=== PATIENT | female | born 1935 | race Caucasian/White ===

== ENCOUNTER → 2019-01-17 13:32 | Outpatient (CLI) | payer MEDICARE, OTHER, SELFPAY ==
--- NOTE | 2019-01-17 | DI.MRI.S_ITS ---
PROCEDURE: MR LUMBAR SPINE WO CON INDICATIONS: Low back pain TECHNIQUE: Noncontrast sagittal T1 spin echo and T2 fast echo, sagittal STIR, axial T1 and T2 fast spin echo through the lumbar spine. In cases with scoliosis, additional coronal T2 fast spin echo may be performed. COMPARISON: None. FINDINGS: Image quality: Excellent. Alignment and Curvature: Grade 1 retrolisthesis of T12 on L1 or grade 2 anterolisthesis of L4 on L5. Bone Marrow: No fracture. Multilevel degenerative endplate sclerosis and spurring. Diffuse facet arthropathy. Partial osseous fusion of L5 and S1 vertebral bodies Spinal Cord: Conus medullaris terminates at the L2 level. Visualized cord demonstrates normal signal and size. Paraspinous Soft Tissues: No paravertebral masses. There is nonspecific, dependent posterior subcutaneous soft tissue edema from level of L2-L5. T12-L1: Mild central canal narrowing. Mild bilateral foraminal stenoses. Partial effacement of both lateral recesses with bilaterally symmetric appearance. L1-L2: Mild central canal narrowing. Partial effacement of both lateral recesses with bilaterally symmetric appearance. . Mild bilateral foraminal narrowing. L2-L3: Minimal central canal narrowing. Lateral recesses appear patent. No foraminal stenosis. L3-L4: Mild/moderate central canal narrowing. Partial effacement of both lateral recesses with bilaterally symmetric appearance. Mild right foraminal narrowing. Mild left foraminal narrowing, with possible slight nerve root compression seen on image 13 series 4. L4-L5: Severe central canal narrowing and complete effacement of both lateral recesses . Severe bilateral foraminal narrowing and nerve root compression. L5-S1: Posterior annular fissure. No high-grade central canal narrowing. Lateral recesses appear grossly patent. Mild bilateral foraminal stenoses. IMPRESSION: Grade 2 anterolisthesis of L4 on L5. Severe L4-L5 canal stenosis Severe bilateral L4-L5 foraminal stenoses Dictated by: Lobito Mata M.D. on 01/18/2019 at 11:16 Approved by: Lobito Mata M.D. on 01/18/2019 at 11:26
== END ==
PROVIDERS: Visit Provider Orthopaedic Surgery Orthopaedic Surgery of the Spine
DX: M54.5 Low back pain (principal); M43.16 Spondylolisthesis, lumbar region; M48.061 Spinal stenosis, lumbar region without neurogenic claudication
CPT/HCPCS: 72148

== ENCOUNTER 2019-03-25 18:24 | Observation (INO) | payer MEDICARE, OTHER, SELFPAY ==
[2019-03-17 11:47] VITALS: BMI 23.3
[2019-03-24] VITALS (17 sets, daily range): BP systolic 111–168; BP diastolic 64–96; PULSE 94–114; RESP 10–19; TEMP 36.2–37.3; O2SAT 90–100; BMI 23.3
--- NOTE | 2019-03-24 | DI.RAD.S_ITS ---
PROCEDURE: XR LUMBAR SPINE 2-3V INDICATIONS: L4-5 TLIF TECHNIQUE: Single lateral intraoperative view of the lumbar spine was acquired. COMPARISON: None. FINDINGS: Spot film demonstrates fusion hardware within the lower lumbar spine. IMPRESSION: Lower lumbar fusion. Dictated by: Tito Garcia M.D. on 03/24/2019 at 17:04 Approved by: Tito Garcia M.D. on 03/24/2019 at 17:05
--- NOTE | 2019-03-24 11:51 | PM.PREOP ---
Pre-operative Note Interval Note History & Physical reviewed/Exam performed by Physician: Yes Changes to H&P: No
[2019-03-24] MEDS: LACTATED RINGERS 1,000 ML 42 ML IV ×2 (12:08→13:22)
--- NOTE | 2019-03-24 12:17 | SUR.OPER ---
Prone on spine table, head in foam head support, padded chest and pelvic supports, gel pad at knees, lower legs supported by pillows; nipples, genitalia and toes free of pressure, arms secured on foam padded arm boards at <90 degrees abduction. Tape over blanket at thigh secured to table.
[2019-03-24] MEDS: CEFAZOLIN 2 GM/100 ML FROZ.PIGGY IV ×2 (12:30→20:05)
[2019-03-24] MEDS: BUPIVACAINE 0.25% W/ EPI 30 ML VIAL INJ (13:10)
[2019-03-24] MEDS: BUPIVACAINE LIPOSOME 266 MG/20 ML VIAL INJ (13:11)
--- NOTE | 2019-03-24 16:01 | P.OP_ITS ---
Operative Date/Time/Diagnoses Date of procedure: 03/24/19 Time of procedure: 13:01 Pre-op diagnosis: 1. L4-5 spondylolisthesis 2. L4-5 spinal stenosis with neurogenic claudication Post-op diagnosis: same Procedure & Clinicians Procedure: 1. L4-5 Postero-lateral and posterior interbody fusion 2. L4-5 interbody cage placement. 3. L4-5 decompressive laminectomy with bilateral facetecomies 4. L4-5 Posterior non-segmental instrumentation 5. [place] of bone marrow from iliac crest 6. Utilization of microsurgical technique and operating microscope Same procedure as scheduled: Yes Indications: Patient has been having chronic back pain and worsening lumbar radiculopathy. Patient failed multiple conservative management with worsening pain weakness and numbness in her lower extremity. Patient has been having difficulty performing activity of daily living. After discussing risks benefits of treatment options, patient elected proceed with surgery. Surgeon: Andrea Ng [employer]dn[employer] Truck Installation Supervisor: Luis Brantley Click Yes if Unassisted: No Anesthesia Type: General Operative Notes Closure Type: primary Specimen(s): none sent Prosthetic devices, grafts, tissues, transplants, or devices: GLobus revolve screws, Rise cage Applied: implant(s) Estimated Blood Loss (mL): 50 Blood products transfused: none Procedure in detail: Patient was seen in the preoperative area. Risks and benefits of the surgery was discussed with the patient. Informed consent was obtained from the patient and placed in the chart. Surgical site was marked. Patient was taken to the operative room. General anesthesia was administered. P rophylactic antibiotic was given to the patient less than 30 min before the incision was made. Patient was placed into a prone position on the Handy table. Patient's back was then prepped and draped in the sterile fashion. Time- out was performed at this time. Using AP and lateral C-arm imaging the interval between L4-5 was identified and marked on patient's back. A 2 inch incision 2 in from midline was made on the right side first. The fascia was incised in line with skin incision. Globus MARS retractors was placed inside the incision and docked onto the L4 lamina. Using microsurgical technique and operating microscope, a L4 laminectomy and L4- 5 facetectomy was performed using a Kerrison rongeur. The disc space at L4-5 was identified. And a total diskectomy was performed at L4-5 level. The endplates were decorticated using a rasp and shaver. The total diskectomy and decortication was performed at L4-5 level in order to to accomplish a L4-5 fusion. The local bone from the laminectomy and facetectomy was saved for local bone grafting. After the total diskectomy and decortication was completed, Bio4 bone graft material was combined with local bone that was harvested earlier. At this time, a separate skin is incision was made over the iliac crest. A Jamshidi needle was inserted into the iliac crest through a separate skin incision. 5 cc of bone marrow aspiration was obtained through the separate skin incision using a Jamshidi needle from the iliac crest. The bone marrow aspiration was combined with local bone and the Bio4 bone grafting material. The bone grafting material was placed into the L4-5 interbody space along with a expandable cage. The cage was expanded to its maximum height using the torque limiting screwdriver. At this time a mirror image incision was made on the left side. The fascia was incised in line with the skin incision. Globus MARS retractor was inserted and docked onto the L4-5 posterolateral gutter. Using the power drill, posterior-l ateral decortication was performed at L4-5 level until bleeding cortical bone was identified. The remaining bone grafting material was placed into the L4-5 posterior lateral gutter he order to accomplish posterolateral fusion at the L4- 5 level. Using the double C-arm technique, pedicle screws were placed into the L4-5 pedicles bilaterally. This was done by placing the Jamshidi needle into the pedi cles, then placing the guidewires over the Jamshidi needle, and finally placing the cannulated screws over the guidewires bilaterally. After the pedicle screws were placed, 2 titanium rods was locked into the heads of the pedicle screws using locking caps and torque limiting screwdriver. Threaded clinical nurse specialist was used to reduce patient's spondylolisthesis. The cage was in good position and reduction was excellent with hardware placed. After all the hardware was placed, and confirmed with AP and lateral C-arm imaging, the wound was then irrigated with sterile normal saline and packed with Ray-Garfield gauze for 3 min to accomplish hemostasis. After the gauze was removed the deep fascia was closed with #1 Vicryl suture. The subcutaneous layer was closed with 2-0 Vicryl. The skin was closed with skin jayden. Patient tolerated the procedure well. There were no complications. Complications: none Post-operative Condition: stable Disposition: PACU Plan for aftercare: Admit to inpatient hospital
[2019-03-24] MEDS: hydrOXYzine 50 MG/ML INJ 25 MG IM (16:19)
[2019-03-24] MEDS: HYDROMORPHONE 2 MG INJ IV ×2 (16:19→16:28)
[2019-03-24] MEDS: fentaNYL 100 MCG/2 ML INJ IV (16:23)
[2019-03-24] MEDS: OXYCODONE IR 5 MG TABLET PO ×2 (19:49→23:39)
[2019-03-24] MEDS: GABAPENTIN 300 MG CAPSULE 600 MG PO (19:49)
[2019-03-24] MEDS: SODIUM CHLORIDE 0.9% 1,000 ML 100 ML IV (19:53)
[2019-03-24] MEDS: DOCUSATE 100 MG CAPSULE PO (20:06)
[2019-03-24] MEDS: SENNOSIDES 8.6 MG TABLET 17.2 MG PO (20:06)
--- NOTE | 2019-03-24 22:30 | PC.ADMIT ---
251 [facility] Admission Note: The patient,Gifty Vazquez,84 y/o, was given written information regarding hospital policies, unit procedures and contact persons. Patient's smoking status: Former smoker. Pt arrived to room 217 from PACU at approx 1820. Drowsy but arousable to voice. Sats low 90's. 2L NC applied, sats increased to 95-100%. Denies pain. Requests to be allowed to sleep. Oriented to room and call system. CPOX on. Bed alarm on for safety. Vital Signs - 8 hr 03/24/19 16:04 03/24/19 16:10 03/24/19 16:15 Temperature 97.9 F Pulse Rate 99 H 98 H 106 H Respiratory Rate 10 L 16 13 Blood Pressure 168/88 H 143/85 H 140/91 H Pulse Oximetry 92 93 03/24/19 16:24 03/24/19 16:32 03/24/19 16:35 Temperature Pulse Rate 105 H 105 H 104 H Respiratory Rate 18 11 L 11 L Blood Pressure 150/80 H 151/80 H 150/86 H Pulse Oximetry 90 L 92 91 03/24/19 16:49 03/24/19 17:04 03/24/19 17:20 Temperature 97.9 F Pulse Rate 104 H 103 H 104 H Respiratory Rate 12 17 18 Blood Pressure 119/69 111/64 145/74 H Pulse Oximetry 92 94 94 03/24/19 17:50 03/24/19 18:20 03/24/19 19:20 Temperature 97.6 F 98.0 F 98.3 F Pulse Rate 95 H 94 H 99 H Respiratory Rate 17 18 18 Blood Pressure 154/89 H 136/77 142/92 H Pulse Oximetry 98 100 100 03/24/19 20:20 03/24/19 20:22 03/24/19 20:29 Temperature 99.2 F Pulse Rate 114 H 108 H 110 H Respiratory Rate 16 Blood Pressure 162/96 H Pulse Oximetry 100 99 95
--- NOTE | 2019-03-24 22:32 | PC.NURSE ---
Drsg c/d/i upon arrival. Noted to have mod spot of sang drainage at approx 2200, drainage remains within margins of drsg. Bladder scanned as pt has not voided by 2200. Shows 626ml. Voided on bedpan 650ml.
[2019-03-24] MEDS: hydrOXYzine pamoate 25 MG CAPSULE PO (23:39)
[2019-03-25] VITALS (8 sets, daily range): BP systolic 98–132; BP diastolic 49–64; PULSE 81–94; RESP 16–20; TEMP 36.4–37.4; O2SAT 95–100
--- NOTE | 2019-03-25 01:20 | PC.NURSE ---
Addendum entered by Libby Marie R.N. 03/25/19 05:58: Noted to have redness around eyes and puffy lids; patient states this is normal for her in the mornings. Slept most of shift. States pain is less severe this morning and rates at 5/10; medicated with Oxycodone. Original Note: Patient seen and assessed at 0000. Is alert and oriented but very anxious regarding repositioning and pain meds. Breath sounds CTA with RA sat of 98%. HRR but tachy at 110 bpm with elevated BP of 153/79. Denies nausea. Does have some chronic difficulty with swallowing so is taking meds either whole in carrier or crushed. BT present but denies flatus; abdomen is soft. Voided at end of previous shift using bedpan; denies any dysuria. Able to assist with repositioning but wants to sleep on her back. Dressing with bright red drainage coming through upper portion of dressing so dressing reinforced. Complains of 7/10 back pain so medicated with Oxycodone + Vistaril. CMS is intact bilaterally but does state she is weak. Noted to have 2+ left LE/foot edema. Decreased ROM in left shoulder is chronic. Wearing bilateral calf SCD's. Fall risk score is moderate; bed alarm activated for safety.
[2019-03-25] MEDS: CEFAZOLIN 2 GM/100 ML FROZ.PIGGY IV (04:05)
[2019-03-25] MEDS: OXYCODONE IR 5 MG TABLET PO ×4 (05:50→17:32)
[2019-03-25] MEDS: THYROID, PORK 30 MG TABLET PO (05:50)
--- NOTE | 2019-03-25 09:07 | PM.PNPO.1 ---
Subjective Subjective Date Patient Seen: 03/25/19 Time Patient Seen: 09:08 Interval history: Pain [id number]. Denies fever chills. No nausea vomiting. Patient lives alone however can arrange to have some neighbors check in on her when discharged home from hospital. Exam Vital Signs (past 8 hours): - 03/25/19 05:40 03/25/19 08:00 Temperature 99 F 98.6 F Pulse Rate 94 H 88 Respiratory Rate 19 20 Blood Pressure 122/49 L 114/55 L Pulse Oximetry 98 97 Oxygen Delivery Method Room Air Oxygen Flow Rate 0 Narrative Exam Narrative: 84-year-old female resting comfortably in bed in no apparent distress. Lumbar dressing is clean, dry and intact. Both legs are warm and dry. Motor functions intact distal bilateral lower extremities. Sensation grossly intact to light touch bilateral lower extremities. Assessment & Plan Post-op Postoperative Procedures: Procedures Operation Date: 03/24/19 13:15 Actual Procedures Side Surgeon p L4-5 TLIF Andrea Ng MD postop day 1. Mobilize with physical therapy. Likely discharge home in the next day or 2.
[2019-03-25] MEDS: SODIUM CHLORIDE 0.9% FLUSH 10 ML IV ×2 (09:56→21:50)
[2019-03-25] MEDS: FUROSEMIDE 20 MG TABLET PO (09:59)
[2019-03-25] MEDS: ACETAMINOPHEN 325 MG TABLET 650 MG PO ×2 (09:59→17:31)
[2019-03-25] MEDS: PANTOPRAZOLE 20 MG TABLET PO ×2 (09:59→21:49)
--- NOTE | 2019-03-25 10:56 | PC.NURSE ---
Addendum entered by Camryn Fitzpatrick R.N. 03/25/19 13:55: O2 sat decreased to 86% on RA when pt trying to sleeping. O2 1L NC placed. Remains on continuous O2 monitoring. Addendum entered by Camryn Fitzpatrick R.N. 03/25/19 12:04: At 1205, OT reported BP decrease after ambulation. Pt sitting with legs dangle down in chair, BP 123/63, pulse 82, after ambulating to BR then standing at sink to wash hand, pt settled back into chair at BP 98/54, pulse 81, pt reported feeling whoozy. OT had pt's legs reclined up while sitting in chair and BP was 106/59, pulse 85, chair alarm on. Addendum entered by Camryn Fitzpatrick R.N. 03/25/19 11:13: Spoke with YULIA Smith at 1110, regarding new order for Miralax, changing SCD from calf to feet, and ordering Swallow evaluation. Luis to place orders. Original Note: Day Shift- Pt A&OX4, very talkative, pleasant,able to make needs known using call light, bed alarm on. Pt repositioned in bed this AM, has not been OOB with PT yet. Pt able to assist in turning herself in bed, prefers to turn to right side as pt has limited ROM to left shoulder. Lower back dressing CDI as previously reinforced by night RN. CMS+, PPP. Pt has chronic edema to bilateral ankles and right dorsal foot. Pt rates 6/10 aching to lower back. Pt given face pain scale to aid in determining her pain level. PRN Oxycodone given with prn Tylenol at 0950. Pt has chronic swallowing difficulty, eats soft foods, takes small pills whole with yogurt and larger pills like 325mg Acetaminophen crushed with yogurt. Pt attempted to swallow Docusate Sodium capsule and pill came back into mouth after pt tried swallowing several times with yogurt and water. Will call PA to switch to different stool softener. When pt swallows, she tends to talk when attempting to get pills/yogurt down, this underwriter remindered her to make sure al food/liquid is swallowed prior to talking to prevent aspiration. Also pts swallow has a moist gurgle audible sound. Pt HOB high fowlers with liquids/food. Pt was spitting up mush like food she takes was her breakfast into emesis bag, no nausea. Will continue to monitor.
--- NOTE | 2019-03-25 11:10 | PT.IIE ---
Current Diagnoses Spondylolisthesis, lumbar region (03/24/19) Spinal stenosis, lumbar region with neurogenic claudication (03/24/19) Surgery Performed Operation Date: 03/24/19 13:15 Actual Procedures p L4-5 TLIF - Andrea Ng MD Surgical History (Last Updated 03/17/19 @ 12:24 by Corinne Osman, RN) History of surgery (Acute) Hx of hemorrhoidectomy (Acute) Hx of tonsillectomy (Acute) Medical History (Last Updated 03/17/19 @ 12:56 by Corinne Osman RN) Acid reflux (Acute) Anxiety (Acute) Arthritis (Acute) Broken teeth (Acute 03/11/19) Difficulty swallowing solids (Acute) HTN (hypertension) (Acute) Hypothyroid (Acute) Numbness and tingling in both hands (Acute) Shoulder pain (Acute) Physical Therapy Inpatient Evaluation/Re-Eval M1 PT/OT-IP Prior Functional Status Start: 03/25/19 11:11 Freq: NEEDED Status: Active Protocol: Document 03/25/19 11:11 DLM (Rec: 03/25/19 11:30 DLM [email or web address]) Medical Review Prior Functional Status Medical History Reviewed Yes Communication WNL, pt has swallowing difficulty associated with known esophageal stricture, has plans for possible dilation but needed back surgery first, she refluxes up small amounts of food after eating Mobility and Gait Independent without device, has stiffness in legs when first gets up in the morning Activities of Daily Living and IADL's Independent, hired professor of theater for cleaning, gets neighbors/ friends to help with house officer if needed Prior Functional Level (Other details) Neighbor is a nurse, friends and neighbor are planning to help her at home after discharge as needed. Her neighbor can stay over-night if needed. Social History Household Members none Living Arrangements House Number of Floors (Floors) One Floor Number of Stairs To Enter/Railing? 2 steps 2 rails Home Environment High Toilet,Tub/Shower Home Equipment Front Wheel Walker,Tub Transfer Bench Employment Status Retired Additional Social History Comment friend got her a used FWW but pt has not used it yet, she has a dog that her friend is currently caring for with this hospitalization M2 PT-IP Current Condition Start: 03/25/19 11:11 Freq: NEEDED Status: Active Protocol: Document 03/25/19 11:11 DLM (Rec: 03/25/19 11:30 DL [email or web address]) Physical Therapy Current Condition Current Condition Evaluation Date 03/25/19 Treatment Diagnosis L4-5 fusion, impaired gait and mobility Onset Date 03/24/19 Precautions Lumbar Precautions Log Roll,No Twisting,Limit Bending,Lifting Restriction of 10 lbs,Gait Belt above Incisional Area Other Precautions has significant joint stiffness throughout with ankles/knees being the worst today after prolonged time in bed M3 PT-IP Subjective Start: 03/25/19 11:11 Freq: NEEDED Status: Active Protocol: Document 03/25/19 11:11 DLM (Rec: 03/25/19 11:30 DL [email or web address]) Subjective Physical Therapy Visit Type Type Initial Evaluation Visit Start Time 10:35 Visit Stop Time 11:10 Total Visit Minutes 35 Number of SALESPERSON HEARING AIDS Visits 0 Physical Therapy Visit Comments Patient Comments She thinks she will recover better at home than going anywhere else. She has friends and neighbors lined up to help as needed when she gets home. Patient Goals return home Therapy Pain Assessment Pain When Pain Assessed At Rest Pain Present Pain Present Pain Reported Location Back Intensity 6 Scale Used Numeric (1 - 10) Description Aching Pain Management Techniques Re-positioning M4 PT-IP Mobility and Gait Start: 03/25/19 11:11 Freq: NEEDED Status: Active Protocol: Document 03/25/19 11:11 DL (Rec: 03/25/19 11:30 DL [email or web address]) PT-Bed Mobility Assessment Rolling Type of Rolling Log Rolling,Roll to Right Level of Assist Standby Assistance Supine to Sit Supine to Sit Standby Assistance Sit to Supine Sit to Supine Standby Assistance Scooting Scooting to Edge of Bed Standby Assistance PT-Transfer Assessment Sit to and From Stand Sit to and from Stand Standby Assistance,Use of Upper Extremities Equipment Transfer Assistive Device Gait Belt,Front Wheeled Walker Transfers Transfer Destination Chair Transfer Technique Stand Step Pivot Transfer Ability Level of Assist Standby Assistance,Use of Upper Extremities Comments Mobility Comments Initial standing is painful for her with calf stiffness Gait Assessment Gait Gait Assistance Required: Standby Assistance,Contact Guard Assist Distance (Feet) 40 Assistive Devices Assistive Device Gait Belt,Front Wheeled Walker Gait Deviations General Gait Pattern Antalgic,Decreased Stride Length Factors Limiting Gait Function Factors Limiting Gait Function Decreased Activity Tolerance, Limited Range of Motion,Pain Comments Gait Comments no back pain with gait, significant calf tightness that interferes with her ability to stand and take steps, this improved as she ambulated in the room, pt left up in recliner at the end of this visit with OT visit next. Vitals signs: BP 123/63 and HR 82 PT-Balance Assessment Sitting Balance and Reactions Static Sitting Balance Ability Good Dynamic Sitting Balance Ability Good Standing Balance and Reactions Static Standing Balance Ability Fair Dynamic Standing Balance Ability Fair Device Used FWW M5 PT-IP Objective Assessments Start: 03/25/19 11:11 Freq: NEEDED Status: Active Protocol: Document 03/25/19 11:11 DLM (Rec: 03/25/19 11:30 DLM [email or web address]) Orientation Orientation/Cognition Level of Alertness Alert Orientation Name,Age,Birthday,Month,Date, Year,Day of Week,Place, Situation Language Function Ability No Deficits Noted Safety Awareness Understands Safety Issues Memory Description No Deficits Noted Comments refluxed up small amounts of food this visit Gross Range of Motion Upper Extremity ROM Assessment Left Impaired Impairments shoulder flexion 90 degrees with end range pain Lower Extremity ROM Assessment Bilaterally Impaired Impairments bilateral ankle/calf tightness , she has difficulty achieving neutral DF bilaterally Strength Upper Extremity Strength Assessment Left Impaired Shoulder pain with use in elevated position Lower Extremity Strength Assessment Within Functional Limits Coordination Assessment Gross Coordination Gross Coordination WNL Sensation Assessment Sensation Gross Sensation WNL Muscle Tone Muscle Tone WNL Yes M6 PT-IP Treatment Start: 03/25/19 11:11 Freq: NEEDED Status: Active Protocol: Document 03/25/19 11:11 DLM (Rec: 03/25/19 11:30 DLM [email or web address]) Physical Therapy Treatment Exercises Exercises Ankle Pumps Education Education Provided Precautions,Post-Op Packet, Safety M7 PT-IP Assessment and Plan Start: 03/25/19 11:11 Freq: NEEDED Status: Active Protocol: Document 03/25/19 11:11 DLM (Rec: 03/25/19 11:30 DLM [email or web address]) PT Summary Assessment and Plan Potential Rehabilitation Potential Good Status of Condition at Evaluation Evolving Summary Impairments Pain,ROM,Strength,Balance,Bed Mobility,Transfers,Gait, Activity Tolerance Assessment Summary Gifty is alert and willing to work with physical therapy. She has significant calf tightness which appears to be related to prolonged time in bed after surgery. She was able to ambulate in her room with fWW and CG/SBA. Her stiffness improved with mobility. She could benefit from more therapy before returning home to increase her activity tolerance and reinforce her spine precautions. Anticipate she may be ready to return home tomorrow. Goals Bed Mobility Goal Independent Transfer Goal Independent,Front Wheeled Walker Gait Goal Independent,Front Wheel Walker Gait Distance 150 feet Other Goals Up and down 2 steps with rails and SBA. Days to Meet Goals 2 Frequency of Treatment Frequency Of Treatment Twice a Day Treatment Plan Physical Therapy Treatment Plan Bed Mobility Training,Transfer Training,Gait Training, Therapeutic Exercise,Balance Retraining,Post Op Education, Discharge Planning Recommendations To Nursing Amount of Assist Needed 1 Person Assist Discharge Recommendations PT Discharge Recommendations Home with Assistance Other Discharge Recommendations friends/neighbors plan to assist her as needed Equipment Needed for Home Before assess her FWW if possible Discharge Transportation Needs at Discharge Private Vehicle
--- NOTE | 2019-03-25 11:59 | OT.IP.EVAL ---
Current Diagnoses Spondylolisthesis, lumbar region (03/24/19) Spinal stenosis, lumbar region with neurogenic claudication (03/24/19) Surgery Performed Operation Date: 03/24/19 13:15 Actual Procedures p L4-5 TLIF - Andrea Ng MD Past Medical History (Last Updated 03/17/19 @ 12:56 by Corinne Osman, RN) Acid reflux (Acute) Anxiety (Acute) Arthritis (Acute) Broken teeth (Acute 03/11/19) Difficulty swallowing solids (Acute) HTN (hypertension) (Acute) Hypothyroid (Acute) Numbness and tingling in both hands (Acute) Shoulder pain (Acute) Surgical History (Last Updated 03/17/19 @ 12:24 by Corinne Osman, RN) History of surgery (Acute) Hx of hemorrhoidectomy (Acute) Hx of tonsillectomy (Acute) Occupational Therapy Inpatient Evaluation/Re-Eval M1 PT/OT-IP Prior Functional Status Start: 03/25/19 11:11 Freq: NEEDED Status: Active Protocol: Document 03/25/19 11:59 KARLA (Rec: 03/25/19 17:11 IDANIA [id number]) Medical Review Prior Functional Status Medical History Reviewed Yes Communication WNL, pt has swallowing difficulty associated with known esophageal stricture, has plans for possible dilation but needed back surgery first, she refluxes up small amounts of food after eating Mobility and Gait Independent without device, has stiffness in legs when first gets up in the morning Activities of Daily Living and IADL's Independent with self care, IADLS, driving. Pt has arranged for neighbors/friends to assist with feed and farm management adviser after surgery PRN.They will check on twice daily and assist with dog care. Prior Functional Level (Other details) Her neighbor can stay over- night if needed when pt first arrives home. Social History Household Members none Living Arrangements House Number of Floors (Floors) One Floor Number of Stairs To Enter/Railing? 2 KRISTY with B rails Home Environment High Toilet,Tub/Shower Home Equipment Tub Transfer Bench Employment Status Retired M2 OT-IP Current Condition Start: 03/25/19 10:30 Freq: Status: Active Protocol: Document 03/25/19 11:59 KARLA (Rec: 03/25/19 17:11 IDANIA [id number]) Occupational Therapy Current Condition Current Condition Evaluation Date 03/25/19 Treatment Diagnosis decreased self care, mobility s/p L4-5 PLIF Diagnosis Onset Date 03/24/19 Post Operative Precautions Lumbar Precautions Log Roll M3 OT- IP Subjective and Pain Start: 03/25/19 10:30 Freq: Status: Active Protocol: Document 03/25/19 11:59 PJM (Rec: 03/25/19 17:11 PJM [id number]) OT- Subjective Occupational Therapy Visit Type Type Initial Evaluation Visit Start Time 10:55 Visit Stop Time 11:59 Total Visit Minutes 64 Notes Pt has high anxiety overlay and asks multiple questions about new information. Some repetition of questions noted. Occupational Therapy Visit Comments Patient Comments I have got a lot of help lined up for after I go home. Patient/Caregiver Goals to return to independent living at home with her dog, to have less pain during daily tasks OT Pain Assessment Pain When Pain Assessed After Treatment Pain Present Pain Present Pain Reported Location Back Intensity 6 Description Aching,Acute Management Techniques Distraction,Re-positioning, Timing of Activity with Medications M4 OT- IP ADL's Start: 03/25/19 10:30 Freq: Status: Active Protocol: Document 03/25/19 11:59 PJM (Rec: 03/25/19 17:11 PJ [id number]) OT QVC-Cyuf-Efvlbog General Evaluation Self-Feeding Ability Independent OT ADL-Grooming General Evaluation Grooming Ability Standby Assistance Areas Needing Assistance Combing/Brushing Hair Comments OT Grooming Comments standing at sink for hand washing and hair combing; pt stood ~3-4 min with no LOB with FWW OT ADL-Oral Care Comments Oral Care Comments did not occur this session OT ADL-Dressing General Eval Lower Body Dressing Ability Moderate Assistance Areas Needing Assistance Underpants/Brief,Socks Assistive Devices Dressing Assistive Devices Long Handled Shoe Horn,Mutuel Department Manager ,Sock Aid Comments OT Dressing Comments Began education re: use of adaptive equipt to adhere to lumbar spine precautions. Pt needs mod verbal cues and assist for unfamiliar techniques and equipt OT ADL-Toileting General Evaluation Toileting Ability Standby Assistance,Minimal Assistance Areas Needing Assistance Manage Clothing,Perform Perineal Hygiene Comments OT Toileting Comments SBA for hygiene after urniantion after education re: body mechanics min assist re: brief management to pull up in back OT ADL-Bathing Comments OT Bathing Comments to be assessed M5 OT- IP IADL's Start: 03/25/19 10:30 Freq: Status: Active Protocol: Document 03/25/19 11:59 PJM (Rec: 03/25/19 17:11 [facility] [id number]) OT-Instrumental Activities of Daily Living Deficits IADL Deficits Identified Deficits Home Safety Awareness Awareness of Need for Assistance at Home Good Awareness Ability to Problem Solve Emergency Able to Problem Solve Situations Medication Management Medication Management No Deficits Identified Money Management Money Management No Deficits Identified Meal Preparation Meal Preparation Caregiver Provides Assist Meal Preparation Comments neighbors and friends to assist with some meal prep and grocery shopping Building Illuminating Engineer Building Illuminating Engineer Caregiver Provides Assist Building Illuminating Engineer Comments friends to assist PRN Driving Driving Caregiver Provides Assist Driving Comments friends to assist until pt able M6 OT- IP Functional Cognition Start: 03/25/19 10:30 Freq: Status: Active Protocol: Document 03/25/19 11:59 PJM (Rec: 03/25/19 17:11 [facility] [id number]) Cognitive Factors Limiting Selfcare Function Cognitive Ability Level of Alertness Alert Patient Orientation Name,Age,Birthday,Month,Date, Year,Day of Week,Place, Situation Attention Span Ability Capable of Focused Attention Ability to Follow Commands Able to Follow One Step Commands Safety Awareness Decreased Ability to Apply Precautions Problem Solving Ability Needs Assist to Identify Solutions Cognitive Comments Cognitive Assessment Comments Pt verbalizes 3/3 lumbar precautions but needs min to mod verbal cues to apply them. Pt has high anxiety overlay and requires some repetition of new information. Pt states pain meds may be affecting her concentration this session OT- Vision and Hearing OT- Hearing Assessment OT- Hearing Assessment WFL OT- Vision Assessment Visual Acuity Glasses For Reading M7 OT- IP Mobility and Balance Start: 03/25/19 10:30 Freq: Status: Active Protocol: Document 03/25/19 11:59 PJ (Rec: 03/25/19 17:11 [facility] [id number]) OT-Transfer Assessment Sit to and From Stand Sit to and from Stand Contact Guard Assistance,1 Person Assistance Transfers Transfer Ability Contact Guard Assistance,1 Person Assistance Technique Transfer Destination Car,Toilet Transfer Technique Stand Step Pivot Devices Transfer Assistive Devices Gait Belt,Front Wheeled Walker Comments Mobility Comments pt up in chair when therapist arrived OT- Gait Assessment Gait Distance (Feet) 25 Assistive Devices Assistive Device Gait Belt,Front Wheeled Walker Comments Gait Ability Comments no LOB noted with FWW, needs min verbal cues for cristiano of unfamiliar FWW walker OT- Balance Assessment Sitting Balance and Reactions Static Sitting Balance Ability Good Dynamic Sitting Balance Ability Good Standing Balance and Reactions Static Standing Balance Ability Good Dynamic Standing Balance Ability Good Comments Other Balance Tests/Deviations/Treatment during grooming, toileting and : lower body dressing M8 OT- IP Objective Assessments Start: 03/25/19 10:30 Freq: Status: Active Protocol: Document 03/25/19 11:59 PJM (Rec: 03/25/19 17:11 PJM [id number]) OT Gross Range of Motion Upper Extremity Range of Motion Assessment Within Functional Limits ROM Impairments Pt has significant joint stiffness in B hands especially in AM and currently seeing rn testing for possible RA dx. OT Strength Upper Extremity Strength Assessment Within Functional Limits Hand Wharf Worker Strength Hand Dominance Right OT- Coordination Assessment Comments Coordination Comments BUE WFL for ADLS OT-Muscle Tone Assessment Muscle Tone WNL Yes OT Sensation Assessment Comments Summary Comments WNL BUE per pt Edema Edema Absent M9 OT- IP Assessment and Plan Start: 03/25/19 10:30 Freq: Status: Active Protocol: Document 03/25/19 11:59 PJM (Rec: 03/25/19 17:11 PJM [id number]) OT Summary Assessment and Plan Potential Rehabilitation Potential Good Analytic Complexity at Evaluation Low Summary OT Impairments Pain,Functional Cognition, Functional Mobility,Grooming, Dressing,Toileting,Bathing, Toilet Transfers,Shower Transfers,Activity Tolerance Assessment Summary Low complexity OT assessment completed on this 84 yr old female s/p L4-5 PLIF with decompressive lami. Pt seen for education re: lumbar precautions, body mechanics, optimal chair selection, posture and adapted ADL techniques with adaptive equipment. Pt has high anxiety overlay and lives alone, but has arranged for BID support from friends/neighbor once she returns home. Anticipate pt will be able to return home when medically stable and clears P.T. with assist from friends. Pt may benefit from HH OT/PT after d/c to increase independence with light IADLS in home setting. Goals Grooming Goal Independent Dressing Goal Independent,Long Handled Shoe Horn,Mutuel Department Manager,Sock Aid Toileting Goal Independent Bathing Goal Standby Assistance Toilet Transfer Goal Independent,ADA High Toilet Shower Transfer Goal Standby Assistance Patient/Caregiver Education Goal Demonstrate Post-Op Precautions,Demonstrate Energy Conservation and Pacing, Caregiver Independent Assisting Patient OT-Other Goals Grooming to be done standing at sink with good body mechanics and safety awareness Days to Meet Goals 2 Frequency of Treatment Frequency Of Treatment Once a Day Treatment Plan OT Treatment Plan ADL Training,Functional Mobility,Patient/Family Education,Discharge Planning Discharge Recommendations OT Discharge Recommendations Home with Assistance Other Discharge Recommendations OT/PT Home Equipment Needs net development manager, sock aid, long shoe horn provided Transportation Needs at Discharge Private Vehicle
[2019-03-25] MEDS: polyethylene glycoL 3350 17 GM POWD.PACK PO (14:31)
--- NOTE | 2019-03-25 15:16 | PT.IPTN ---
Current Diagnoses Spondylolisthesis, lumbar region (03/24/19) Spinal stenosis, lumbar region with neurogenic claudication (03/24/19) Surgery Performed Operation Date: 03/24/19 13:15 Actual Procedures p L4-5 TLIF - Andrea Ng MD Physical Therapy Treatment Note M2 PT-IP Current Condition Start: 03/25/19 11:11 Freq: NEEDED Status: Active Protocol: Document 03/25/19 11:11 DLM (Rec: 03/25/19 11:30 DLM [id number]) Physical Therapy Current Condition Current Condition Evaluation Date 03/25/19 Treatment Diagnosis L4-5 fusion, impaired gait and mobility Onset Date 03/24/19 Precautions Lumbar Precautions Log Roll,No Twisting,Limit Bending,Lifting Restriction of 10 lbs,Gait Belt above Incisional Area Other Precautions has significant joint stiffness throughout with ankles/knees being the worst today after prolonged time in bed M3 PT-IP Subjective Start: 03/25/19 11:11 Freq: NEEDED Status: Active Protocol: Document 03/25/19 15:16 DLM (Rec: 03/25/19 19:16 DLM [id number]) Subjective Physical Therapy Visit Type Type Treatment Note Visit Start Time 14:30 Visit Stop Time 15:16 Total Visit Minutes 46 Number of CINDER PITMAN Visits 0 Physical Therapy Visit Comments Patient Comments The walker her friend got for her does not have any wheels. She will need a FWW for home and hopes we can help her with this. Patient Goals Be able to return home Therapy Pain Assessment Pain When Pain Assessed At Rest Pain Present Pain Present Pain Reported Location Back Intensity 6 Scale Used Numeric (1 - 10) Description Aching Pain Management Techniques Re-positioning M4 PT-IP Mobility and Gait Start: 03/25/19 11:11 Freq: NEEDED Status: Active Protocol: Document 03/25/19 15:16 DLM (Rec: 03/25/19 19:16 DLM [id number]) PT-Bed Mobility Assessment Rolling Type of Rolling Log Rolling Level of Assist Standby Assistance Supine to Sit Supine to Sit Standby Assistance Sit to Supine Sit to Supine Standby Assistance Scooting Scooting to Edge of Bed Independent PT-Transfer Assessment Sit to and From Stand Sit to and from Stand Standby Assistance Equipment Transfer Assistive Device Gait Belt,Front Wheeled Walker Transfers Transfer Destination Bed Transfer Technique Stand Step Pivot Transfer Ability Level of Assist Standby Assistance,Use of Upper Extremities Gait Assessment Gait Gait Assistance Required: Standby Assistance Distance (Feet) 120 Assistive Devices Assistive Device Gait Belt,Front Wheeled Walker Factors Limiting Gait Function Factors Limiting Gait Function Decreased Activity Tolerance, Pain,Poor Balance Comments Gait Comments her LE pain improved with gait this afternoon, she needs intermittent verbal cues to avoid twisting motions PT-Balance Assessment Sitting Balance and Reactions Static Sitting Balance Ability Good Dynamic Sitting Balance Ability Good Standing Balance and Reactions Static Standing Balance Ability Good Dynamic Standing Balance Ability Good Device Used FWW M5 PT-IP Objective Assessments Start: 03/25/19 11:11 Freq: NEEDED Status: Active Protocol: Document 03/25/19 11:11 DLM (Rec: 03/25/19 11:30 DLM [id number]) Orientation Orientation/Cognition Level of Alertness Alert Orientation Name,Age,Birthday,Month,Date, Year,Day of Week,Place, Situation Language Function Ability No Deficits Noted Safety Awareness Understands Safety Issues Memory Description No Deficits Noted Comments refluxed up small amounts of food this visit Gross Range of Motion Upper Extremity ROM Assessment Left Impaired Impairments shoulder flexion 90 degrees with end range pain Lower Extremity ROM Assessment Bilaterally Impaired Impairments bilateral ankle/calf tightness , she has difficulty achieving neutral DF bilaterally Strength Upper Extremity Strength Assessment Left Impaired Shoulder pain with use in elevated position Lower Extremity Strength Assessment Within Functional Limits Coordination Assessment Gross Coordination Gross Coordination WNL Sensation Assessment Sensation Gross Sensation WNL Muscle Tone Muscle Tone WNL Yes M6 PT-IP Treatment Start: 03/25/19 11:11 Freq: NEEDED Status: Active Protocol: Document 03/25/19 15:16 DLM (Rec: 03/25/19 19:16 DLM [id number]) Physical Therapy Treatment Exercises Exercises Ankle Pumps Education Education Provided Precautions,Safety M7 PT-IP Assessment and Plan Start: 03/25/19 11:11 Freq: NEEDED Status: Active Protocol: Document 03/25/19 15:16 DLM (Rec: 03/25/19 19:16 DLM [id number]) PT Summary Assessment and Plan Summary Impairments Pain,ROM,Strength,Balance,Bed Mobility,Transfers,Gait, Activity Tolerance Progress Towards Goals Progressing Toward Goals Assessment Summary She tolerated longer distances of gait this visit. She describes increased right LE pain when she tries to stand fully erect even with the fWW. She will need a fWW. The standard walker she has to use at discharge will be too painful and stressful for her back after surgery. She had no light-headedness nor dizziness this visit. Vital signs after gait are BP 124/59 and HR 85. Continue to plan for home possibly tomorrow if she continues to progress well . Goals Bed Mobility Goal Independent Transfer Goal Independent,Front Wheeled Walker Gait Goal Independent,Front Wheel Walker Gait Distance 150 feet Other Goals Up and down 2 steps with rails and SBA. Days to Meet Goals 2 Frequency of Treatment Frequency Of Treatment Twice a Day Treatment Plan Physical Therapy Treatment Plan Bed Mobility Training,Transfer Training,Gait Training, Therapeutic Exercise,Balance Retraining,Post Op Education, Discharge Planning Recommendations To Nursing Amount of Assist Needed 1 Person Assist Discharge Recommendations PT Discharge Recommendations Home with Assistance Other Discharge Recommendations friends/neighbors plan to assist her as needed Equipment Needed for Home Before FWW for home to be issued, Discharge script in chart Transportation Needs at Discharge Private Vehicle
--- NOTE | 2019-03-25 16:07 | CM.IDA ---
Discharge Planning/Care Management CM Discharge Assessment Start: 03/25/19 15:57 Freq: Status: Active Protocol: Document 03/25/19 15:57 SAL (Rec: 03/25/19 16:07 SAL [id number]) Discharge Planning Assessment Assigned Packing Line Operator Zara Mercer MSW DPOA/Assigned Designee Name Vanessa Crowe, friend Contact Information [phone] Advance Directives? No History Provided By Patient,Medical Record Prior Living Arrangements House Household Members none Independent with ADL's Yes Is patient alert and oriented? Yes Needs Assistance With Home Chores / Shopping Barriers to Discharge No Comment Pt is POD#1 from spinal surgery w/ Dr Ng. PCP: Kimber English Payer: [facility]/ for [facility] Reviewed chart, attempted to meet w/pt this afternoon and GUANAKO Cowan was passing meds, explained pt was feeling anxious at this time and it was not a good time for a visit from this SENIOR INSTRUCTIONAL DESIGNER. Therapy team has cleared pt for return home w/friends and neighbors to assist. No barriers to return home are identified today, this SENIOR INSTRUCTIONAL DESIGNER following closely for DC needs /concerns that might arise. Violeta Mercer SENIOR INSTRUCTIONAL DESIGNER Discharge Plan Home Transportation Arrangement Friend Referrals Initiated None needed
--- NOTE | 2019-03-25 17:53 | ST.SWALLOW ---
Visit Care Team Role Provider Type Arslan Dewey DO Other Providers Physician Specialty: Anesthesiology Address: [address] [place] [address], [id number] Email: Robles Arango MD Other Providers Physician Specialty: ANE Address: [address] [place] [address], [id number] Email: Avila Logan MD Other Providers Physician Specialty: Anesthesiology Address: [address] [place] [address], [id number] Email: Curry Dasilva MD Other Providers Physician Specialty: Anesthesiology Address: [address] [place] [address], [id number] Email: Terence Quijano MD Other Providers Physician Specialty: Anesthesiology Address: [address] [place] [address], [id number] Email: Corinne Cortes MD Other Providers Physician Specialty: Anesthesiology Address: [address] [place] [address], [id number] Email: Nay Hampton MD Other Providers Physician Specialty: Anesthesiology Address: [address] [place] [address], [id number] Email: William Huerta MD Other Providers Physician Specialty: Anesthesiology Address: [address] [place] [address], [id number] Email: Andrea Ng MD Admit Provider Physician Attending Provider Referring Provider Specialty: Orthopedic Surgery Address: [address] [place] [address], [id number] Email: [email or web address]
--- NOTE | 2019-03-25 18:01 | SLP.IPNOTE ---
Order received for a swallowing assessment for this patient. During initial discussion with the pt, she indicated that she had a MBSS study completed at [facility] on 03/17/19. She further reported that diet suggestions were made for a soft diet and a referral to GI. Called pt's PCP, Dr. English in [place], [place]. Requested results of MBSS be faxed to this GAUGE MAKER. Review of the MBSS report indicated an oral phase of swallow WFL. Pharyngeal swallow indicated flash penetration x1 with no aspiration. Flash penetration is not unusual in elderly patients. In addition, there was a description of esophagus/hypopharynx widening with contrast opacifications which leads to spontaneous reflux contrast material...suggestive of a potential for diverticulum versus patulous esophagus with marked spontanous reflux. Gregory Rebolledo MD Given the above information, a swallow screen wa completed with the pt. A formal clinical swallow evaluation not indicated at this time. The pt stated she has been referred to GI for further assessment.
[2019-03-25] MEDS: SENNOSIDES 8.6 MG TABLET 17.2 MG PO (21:49)
[2019-03-25] MEDS: hydrOXYzine pamoate 25 MG CAPSULE PO (21:49)
--- NOTE | 2019-03-25 22:35 | PC.NURSE ---
Assumed care of pt at 1500. Resting in bed during bedside hand-off. Drsg c/d/i. CMS+. Up for dinner to chair, steady on feet. 1 pa w/fww. TANK HOUSE SUPERVISOR arrived to assess pt, pt notified TANK HOUSE SUPERVISOR that she previously had a MBSS study. See TANK HOUSE SUPERVISOR notes for complete info. Pt tolerating soft diet, meds crushed and administered in carrier. Neighbor Nella called to say she will not be able to stay with pt once pt is home r/t an urgent family emergency. This RN explained the situation to pt and pt states she will ask her other friends if they can stay with her. This advertising copy writer expressed the safety concerns of being home alone. Pt verbalized understanding and states she will make arrangements to have help 24 hrs/day during the recover period.
[2019-03-26] VITALS (8 sets, daily range): BP systolic 101–157; BP diastolic 48–97; PULSE 87–110; RESP 16–20; TEMP 36.6–37.1; O2SAT 96–98
[2019-03-26] MEDS: OXYCODONE IR 5 MG TABLET PO ×6 (01:24→22:28)
[2019-03-26] MEDS: hydrOXYzine pamoate 25 MG CAPSULE PO ×3 (06:40→22:30)
[2019-03-26] MEDS: HYDROMORPHONE 0.5 MG INJ 0.2 MG IV (07:48)
[2019-03-26] MEDS: SODIUM CHLORIDE 0.9% FLUSH 10 ML IV ×2 (07:49→21:02)
--- NOTE | 2019-03-26 07:51 | PC.NURSE ---
Addendum entered by Camryn Fitzpatrick R.N. 03/26/19 14:59: Spoke with YULIA Smith at 1459. Updated regarding latest PT assessment, will cancel discharge order. Addendum entered by Camryn Fitzpatrick R.N. 03/26/19 14:55: Per PT at 1455, pt unsafe on stairs, will need another PT session. Addendum entered by Camryn Fitzpatrick R.N. 03/26/19 12:23: Pt reports lower back pain at 6-7/10. PRN Oxycodone given. Pt very remains anxious/fixated, repeating questions to supply planner, nurse, PA regarding financial obligation with insurance coverage. Spoke with power in discharge planning at 0820 who would follow up with pt. At 1220, pt given number for hospital billing department to call. Pt had called her friend Hudson in to come pick her up for discharge. Original Note: Day Shift- Pt up to BSC with 1PA, pain to lower back 8/10, pt teary, very anxious. Lower back dressing rolled up exposing surgical area. Old dressing removed, Coversite X1 applied by RN Coordinator.
[2019-03-26] MEDS: PANTOPRAZOLE 20 MG TABLET PO ×2 (08:04→20:55)
[2019-03-26] MEDS: polyethylene glycoL 3350 17 GM POWD.PACK PO (08:04)
[2019-03-26] MEDS: FUROSEMIDE 20 MG TABLET PO (08:04)
[2019-03-26] MEDS: ACETAMINOPHEN 325 MG TABLET 650 MG PO ×2 (08:04→20:55)
[2019-03-26] MEDS: THYROID, PORK 30 MG TABLET PO (08:11)
--- NOTE | 2019-03-26 10:53 | OT.IPNOTE ---
Attempted to see pt for shower and pt states not wanting to be seen as pain just controlled from getting medications. Pt having lots of questions regrading her insurance. Nursing states has already talked to her shelter case manager and that they will come and speak to her.
--- NOTE | 2019-03-26 11:21 | PT-IP ANOTE ---
Unable to see patient in AM due to scheduling conflict.
--- NOTE | 2019-03-26 11:50 | P.DS_ITS ---
History of Present Illness History of Present Illness Chief complaint: Translaminar Interbody Fusion/Laminotomy Discharge Providers Provider Date of admission: 03/24/19 11:01 Consults: 03/24/19 06:00 Consult to Anesthesiology Routine Comment: Consulting Provider: Anesthesiologist Reason for consultation: Regional block for post operative pain control 03/24/19 18:24 Consult to Occupational Therapy Evaluate & Treat Comment: Physician Instructions: Evaluate and treat Consult to Physical Therapy Evaluate & Treat Comment: Physician Instructions: Evaluate and Treat 03/24/19 22:11 Consult to Dietitian, Adult Routine Comment: Reason For Exam: Low margie score. 03/25/19 12:10 Consult to Speech Therapy Evaluate & Treat Comment: HX difficult swallow, crush pills, moist gurgle Physician Instructions: Evaluate and treat Discharge provider: Annabella Brantley PA-C Exam Vital Signs (past 8 hours): - 03/26/19 04:05 03/26/19 04:45 03/26/19 06:37 Temperature 98.6 F 98.6 F Pulse Rate 90 90 91 H Respiratory Rate 18 18 Blood Pressure 110/51 L 110/51 L 145/76 H Pulse Oximetry 98 98 03/26/19 09:00 Temperature 97.9 F Pulse Rate 87 Respiratory Rate 16 Blood Pressure 101/48 L Pulse Oximetry 96 Oxygen Delivery Method Room Air Oxygen Flow Rate 0 Discharge Plan Discharge Plan Patient Disposition: Home Discharge orders & Medications Prescriptions: New oxycodone 5 mg tablet 5 mg PO Q4-6H PRN (Reason: pain (scale score 7-10)) Qty: 60 RF: 0 Continued pantoprazole 20 mg Tablet,Delayed Release (Dr/Ec) 20 mg PO BID RF: 0 zolpidem 5 mg Tablet 5 mg PO BEDTIME PRN (Reason: sleep, anxiety) RF: 0 furosemide 20 mg Tablet 20 mg PO DAILY RF: 0 thyroid (pork) [[place] Thyroid] 30 mg Tablet 30 mg PO DAILY RF: 0 gabapentin 300 mg Capsule 600 mg PO BEDTIME PRN (Reason: Pain in hands) RF: 0 Discontinued hydrocodone-acetaminophen 5-325 mg Tablet 1 tab PO Q4-6H PRN (Reason: Pain) RF: 0 Follow up/Referrals: Andrea Ng MD [Physician] - Diet/Activity/Treatments Diet: Regular Activity: no excessive bending, lifting, twisting Cold/Heat Therapy: continue cold therapy as needed Skin/Wound/Dressing Care Report to your healthcare provider any signs of infection, such as:: chills, fever, increased pain, unusual drainage and unusual redness Dressing: keep dressing dry. contact office for dressing changes. Visit Report/Discharge Packet Instructions: How to Prevent Falls, DI for Postoperative Pain, DI for Prescription Opioid Use, Oxycodone, DI for Transforaminal Lumbar Interbody Fusion Stand Alone Forms: Surgery Discharge Visit Report Forms: Stroke Signs & Symptoms
--- NOTE | 2019-03-26 14:40 | PT.IPTN ---
Current Diagnoses Spondylolisthesis, lumbar region (03/24/19) Spinal stenosis, lumbar region with neurogenic claudication (03/24/19) Surgery Performed Operation Date: 03/24/19 13:15 Actual Procedures p L4-5 TLIF - Andrea Ng MD Physical Therapy Treatment Note M2 PT-IP Current Condition Start: 03/25/19 11:11 Freq: NEEDED Status: Active Protocol: Document 03/25/19 11:11 DLM (Rec: 03/25/19 11:30 DLM [id number]) Physical Therapy Current Condition Current Condition Evaluation Date 03/25/19 Treatment Diagnosis L4-5 fusion, impaired gait and mobility Onset Date 03/24/19 Precautions Lumbar Precautions Log Roll,No Twisting,Limit Bending,Lifting Restriction of 10 lbs,Gait Belt above Incisional Area Other Precautions has significant joint stiffness throughout with ankles/knees being the worst today after prolonged time in bed M3 PT-IP Subjective Start: 03/25/19 11:11 Freq: NEEDED Status: Active Protocol: Document 03/26/19 15:57 KS (Rec: 03/26/19 15:58 KS [id number]) Subjective Physical Therapy Visit Type Type Administrative Note Visit Start Time 11:20 Visit Stop Time 11:21 Total Visit Minutes 1 Notes Unable to see patient in AM due to scheduling conflict. M4 PT-IP Mobility and Gait Start: 03/25/19 11:11 Freq: NEEDED Status: Active Protocol: Document 03/26/19 13:31 KS (Rec: 03/26/19 17:27 KS [id number]) PT-Bed Mobility Assessment Scooting Scooting to Edge of Bed Standby Assistance PT-Transfer Assessment Sit to and From Stand Sit to and from Stand Moderate Assistance,1 Person Assistance,Use of Upper Extremities Equipment Transfer Assistive Device Gait Belt,Front Wheeled Walker Transfers Transfer Destination Chair Transfer Technique Pt ambulated w/ FWW. Transfer Ability Level of Assist Moderate Assistance,1 Person Assistance,Use of Upper Extremities Comments Mobility Comments Pt was sitting in chair upon arrival from therapy. Pt was very fixated on issues happening w/ medicare and needed frequent redirecting to focus on therapy. Cues to scoot forward in chair before standing. Mod A and cues to push up from chair for sit<. stand. Pt reports feelings of weakness in BLE. Once standing , pts ambulated w/ FWW and CGA to hallway and then sat in wheelchair MIN A and mod cues to reach back and slowly lower , Max cues for FWW management. Pt was then taken to stairs, Mod A for sit<>stand from w/c w/ FWW and Min A and cues to sit back back after stair training. Afterwards, pt was returned to room in w/c and ambulated from w/c in hallway to chair CGA w/ cues to not pull on FWW when standing. Min A for stand<>sit w/ cues for hand placement. Pt left in chair w/ all needs in reach. Gait Assessment Gait Gait Assistance Required: Contact Guard Assist,1 Person Assist Distance (Feet) 35 Able to Maintain Weight Bearing Status Yes During Gait Assistive Devices Assistive Device Gait Belt,Front Wheeled Walker Orthotic/Prosthetic Devices or Brace: No Gait Deviations General Gait Pattern Antalgic,Decreased Stride Length,Decreased Feet Clearance,Flexed Trunk Factors Limiting Gait Function Factors Limiting Gait Function Decreased Activity Tolerance, Pain,Poor Balance Comments Gait Comments Pt ambulated ~35 ft w/ FWW and CGA. Pt walked from chair to hallway and then was taken to stairs in w/c for energy conservation. After stairs, pt requested to be taken back to room in w/c d/t fatigue. Pt needs frequent cues for FWW management and tries to leave FWW when sitting, cues for upright posture as well. Pts gait deficits d/t pain and decreased tolerance for activity. Stair Climbing Assessment Evaluation Level of Assist On Stairs Minimal Assistance,1 Person Assistance Devices Stair Climbing Assistive Devices Left Railing,Right Railing Technique/Endurance Stair Climbing Direction Ascend and Descend Stair Climbing Technique Step Over Step,Step to Step Number of Steps Climbed 3 Stair Climbing Set # Repetitions (reps) 1 Comments Stair Climbing Comments Pt was instructed to perform stairs w/ L hand rail, but she was unable and needed to use bilat hand rails. Pt demonstrated step over step gait pattern ascending, but was unsteady needing Min A. Step to step descending. Pt completed 3 steps and reported fatigue and weakness afterwards. PT-Balance Assessment Sitting Balance and Reactions Static Sitting Balance Ability Good Dynamic Sitting Balance Ability Good Standing Balance and Reactions Static Standing Balance Ability Fair Dynamic Standing Balance Ability Fair Device Used FWW M5 PT-IP Objective Assessments Start: 02/13/20 11:11 Freq: NEEDED Status: Active Protocol: Document 03/25/19 11:11 DLM (Rec: 03/25/19 11:30 DLM [id number]) Orientation Orientation/Cognition Level of Alertness Alert Orientation Name,Age,Birthday,Month,Date, Year,Day of Week,Place, Situation Language Function Ability No Deficits Noted Safety Awareness Understands Safety Issues Memory Description No Deficits Noted Comments refluxed up small amounts of food this visit Gross Range of Motion Upper Extremity ROM Assessment Left Impaired Impairments shoulder flexion 90 degrees with end range pain Lower Extremity ROM Assessment Bilaterally Impaired Impairments bilateral ankle/calf tightness , she has difficulty achieving neutral DF bilaterally Strength Upper Extremity Strength Assessment Left Impaired Shoulder pain with use in elevated position Lower Extremity Strength Assessment Within Functional Limits Coordination Assessment Gross Coordination Gross Coordination WNL Sensation Assessment Sensation Gross Sensation WNL Muscle Tone Muscle Tone WNL Yes M6 PT-IP Treatment Start: 03/25/19 11:11 Freq: NEEDED Status: Active Protocol: Document 03/26/19 13:31 KS (Rec: 03/26/19 17:27 KS [id number]) Physical Therapy Treatment Education Education Provided Precautions,Safety Other Treatments Other Treatment Performed DME for FWW, FWW setup, pt education on FWW use M7 PT-IP Assessment and Plan Start: 03/25/19 11:11 Freq: NEEDED Status: Active Protocol: Document 03/26/19 13:31 KS (Rec: 03/26/19 17:27 KS [id number]) PT Summary Assessment and Plan Potential Rehabilitation Potential Good Summary Impairments Pain,ROM,Strength,Balance,Bed Mobility,Transfers,Gait, Activity Tolerance Progress Towards Goals Slow Progress due to Activity Tolerance Assessment Summary Pt seems to have decreased tolerance for activity today and needed more assist compared to last treatment. Pt was very much focused and anxious about issues w/ insurance and needed frequent redirecting during treatment. Pt was Mod A for sit<>stand and cues for hand placement each time. Pt needed cues to bring FWW w/ her at all times and before sitting down. Min A and cues for stand<>sit. CGA for ambulation w/ FWW. Min A for stairs. Pt unable to complete stairs w/ use of one hand rail today and required bilat hand rails when ascending / descending. Pt reported weakness in BLE when standing from chair and w/c. Goals Bed Mobility Goal Independent Transfer Goal Independent,Front Wheeled Walker Gait Goal Independent,Front Wheel Walker Gait Distance 150 feet Other Goals Up and down 2 steps with rails and SBA. Days to Meet Goals 2 Frequency of Treatment Frequency Of Treatment Twice a Day Treatment Plan Physical Therapy Treatment Plan Bed Mobility Training,Transfer Training,Gait Training, Therapeutic Exercise,Balance Retraining,Post Op Education, Discharge Planning Recommendations To Nursing Amount of Assist Needed 1 Person Assist Discharge Recommendations PT Discharge Recommendations Home with Assistance Other Discharge Recommendations friends/neighbors plan to assist her as needed Transportation Needs at Discharge Private Vehicle
--- NOTE | 2019-03-26 14:40 | OT.IP.TRT ---
Current Diagnoses Spondylolisthesis, lumbar region (03/24/19) Spinal stenosis, lumbar region with neurogenic claudication (03/24/19) Surgery Performed Operation Date: 03/24/19 13:15 Actual Procedures p L4-5 TLIF - Andrea gN MD Occupational Therapy Treatment Note M2 OT-IP Current Condition Start: 03/25/19 10:30 Freq: Status: Active Protocol: Document 03/25/19 11:59 PJM (Rec: 03/25/19 17:11 PJM [id number]) Occupational Therapy Current Condition Current Condition Evaluation Date 03/25/19 Treatment Diagnosis decreased self care, mobility s/p L4-5 PLIF Diagnosis Onset Date 03/24/19 Post Operative Precautions Lumbar Precautions Log Roll M3 OT- IP Subjective and Pain Start: 03/25/19 10:30 Freq: Status: Active Protocol: Document 03/26/19 14:09 [facility] (Rec: 03/26/19 14:22 [facility] [id number]) OT- Subjective Occupational Therapy Visit Type Type Treatment Note Visit Start Time 13:40 Visit Stop Time 13:55, [id number] Total Visit Minutes 25 Occupational Therapy Visit Comments Patient Comments Pt states frustrated and wanting to stay another day. PA to talk to the pt. Pt's friend came in for caregiver training. OT Pain Assessment Pain When Pain Assessed At Rest Pain Present Pain Present Denied Pain M4 OT- IP ADL's Start: 03/25/19 10:30 Freq: Status: Active Protocol: Document 03/26/19 14:09 CCC (Rec: 03/26/19 14:22 [facility] [id number]) OT ADL-Grooming General Evaluation Grooming Ability Standby Assistance Comments OT Grooming Comments VC to keep FWW in front of her . OT ADL-Dressing General Eval Lower Body Dressing Ability Minimal Assistance Areas Needing Assistance Underpants/Brief Comments OT Dressing Comments MATTHIEU to help with use of family preservation caseworker to get over her feet. OT ADL-Toileting General Evaluation Toileting Ability Standby Assistance Areas Needing Assistance Manage Clothing,Perform Perineal Hygiene Comments OT Toileting Comments SBA for hygiene and able to reach in back. Pt needing MATTHIEU to stand from toilet and states her toilet is higher at home. OT ADL-Bathing Comments OT Bathing Comments Pt not wanting to shower at this time. M5 OT- IP IADL's Start: 03/25/19 10:30 Freq: Status: Active Protocol: Document 03/25/19 11:59 PJM (Rec: 03/25/19 17:11 PJM [id number]) OT-Instrumental Activities of Daily Living Deficits IADL Deficits Identified Deficits Home Safety Awareness Awareness of Need for Assistance at Home Good Awareness Ability to Problem Solve Emergency Able to Problem Solve Situations Medication Management Medication Management No Deficits Identified Money Management Money Management No Deficits Identified Meal Preparation Meal Preparation Caregiver Provides Assist Meal Preparation Comments neighbors and friends to assist with some meal prep and grocery shopping Integrated Circuit Design Engineer Integrated Circuit Design Engineer Caregiver Provides Assist Integrated Circuit Design Engineer Comments friends to assist PRN Driving Driving Caregiver Provides Assist Driving Comments friends to assist until pt able M6 OT- IP Functional Cognition Start: 03/25/19 10:30 Freq: Status: Active Protocol: Document 03/26/19 14:09 [facility] (Rec: 03/26/19 14:22 [facility] [id number]) Cognitive Factors Limiting Selfcare Function Cognitive Ability Patient Orientation Name,Age,Birthday,Month,Date, Year,Day of Week,Place, Situation Attention Span Ability Capable of Focused Attention Ability to Follow Commands Able to Follow One Step Commands Memory Description Short Term Impaired Safety Awareness Decreased Ability to Apply Precautions Problem Solving Ability Needs Assist to Identify Solutions Cognitive Comments Cognitive Assessment Comments Pt having high anxiety due to concerns about insurance, needing more safety cues to keep FWW in front of her, be careful and incorporate back precautions for Adl needs. Pt's friend in agreement that pt will need assist at home initially. Pt's friend states the friend who was going to stay with her had a family emergency and know needing to find a back up person and confirm that she will have help. M7 OT- IP Mobility and Balance Start: 03/25/19 10:30 Freq: Status: Active Protocol: Document 03/26/19 14:09 [facility] (Rec: 03/26/19 14:22 [facility] [id number]) OT-Transfer Assessment Sit to and From Stand Sit to and from Stand Contact Guard Assistance, Minimal Assistance,1 Person Assistance Transfers Transfer Ability Standby Assistance,Contact Guard Assistance Technique Transfer Destination Bed,Toilet Devices Transfer Assistive Devices Gait Belt,Front Wheeled Walker Comments Mobility Comments Pt needign MATTHIEU to come to stand from lower surfaces. OT- Gait Assessment Assistive Devices Assistive Device Gait Belt,Front Wheeled Walker M8 OT- IP Objective Assessments Start: 03/25/19 10:30 Freq: Status: Active Protocol: Document 03/25/19 11:59 PJM (Rec: 03/25/19 17:11 PJM [id number]) OT Gross Range of Motion Upper Extremity Range of Motion Assessment Within Functional Limits ROM Impairments Pt has significant joint stiffness in B hands especially in AM and currently seeing office services specialist for possible RA dx. OT Strength Upper Extremity Strength Assessment Within Functional Limits Hand Maintenance Of Way Supervisor Strength Hand Dominance Right OT- Coordination Assessment Comments Coordination Comments BUE WFL for ADLS OT-Muscle Tone Assessment Muscle Tone WNL Yes OT Sensation Assessment Comments Summary Comments WNL BUE per pt Edema Edema Absent M9 OT- IP Assessment and Plan Start: 03/25/19 10:30 Freq: Status: Active Protocol: Document 03/26/19 14:09 CCC (Rec: 03/26/19 14:22 CCC [id number]) OT Summary Assessment and Plan Potential Rehabilitation Potential Good Analytic Complexity at Evaluation Low Summary OT Impairments Pain,Functional Cognition, Functional Mobility,Grooming, Dressing,Toileting,Bathing, Toilet Transfers,Shower Transfers,Activity Tolerance Progress Towards Goals Progressing Toward Goals Assessment Summary Due to pt's high anxiety pt would benefit from friend to stay with her initially and help making sure pt able to do all ADl and functional mobility needs. Pt would benefit form home health OT/PT to continue to increase overall safety awareness for pt's needs at home. Goals Grooming Goal Independent Dressing Goal Independent,Long Handled Shoe Horn,It Lead,Sock Aid Toileting Goal Independent Bathing Goal Standby Assistance Toilet Transfer Goal Independent,ADA High Toilet Shower Transfer Goal Standby Assistance Patient/Caregiver Education Goal Demonstrate Post-Op Precautions,Demonstrate Energy Conservation and Pacing, Caregiver Independent Assisting Patient OT-Other Goals Grooming to be done standing at sink with good body mechanics and safety awareness . Days to Meet Goals 1 Frequency of Treatment Frequency Of Treatment Once a Day Treatment Plan OT Treatment Plan ADL Training,Functional Mobility,Patient/Family Education,Discharge Planning Discharge Recommendations OT Discharge Recommendations Home with Assistance Other Discharge Recommendations OT/PT Home Equipment Needs family preservation caseworker, sock aid, long shoe horn Transportation Needs at Discharge Private Vehicle
[2019-03-26] MEDS: SENNOSIDES 8.6 MG TABLET 17.2 MG PO (20:55)
[2019-03-27] MEDS: OXYCODONE IR 5 MG TABLET PO ×4 (03:12→14:57)
[2019-03-27] MEDS: hydrOXYzine pamoate 25 MG CAPSULE PO ×2 (03:12→08:42)
[2019-03-27 03:36] VITALS: BP 126/57; PULSE 81; RESP 16; TEMP 36.9; O2SAT 97
[2019-03-27 08:15] VITALS: BP 115/65; PULSE 86; RESP 16; TEMP 37.2; O2SAT 95
[2019-03-27] MEDS: FUROSEMIDE 20 MG TABLET PO (08:42)
[2019-03-27] MEDS: polyethylene glycoL 3350 17 GM POWD.PACK PO (08:42)
[2019-03-27] MEDS: SODIUM CHLORIDE 0.9% FLUSH 10 ML IV (08:42)
[2019-03-27] MEDS: PANTOPRAZOLE 20 MG TABLET PO (08:42)
[2019-03-27] MEDS: THYROID, PORK 30 MG TABLET PO (08:43)
--- NOTE | 2019-03-27 09:24 | CM.DPNOTE ---
DCP Cont Yesterday, 03.26.19, GUANAKO Cowan had requested this LUMBER RACKER meet w/pt at bedside to review concerns about her observation status and coverage from her [employer] for this hospitalization. Re: DCP, pt had been cleared from a therapy standpoint in the AM for return home w/friends to assist w/outpt f/u. Pt was reported as saying she was eager to return home and friend Fernando was arriving in the afternoon to transport home. Need for HH was not indicated Met w/pt at bedside and Sabra, Continuous Mining Machine Operator, was reviewing [employer] form indicating obs status. This LUMBER RACKER reviewed the print out outlining MCR benefits for both Med A and Med B. Pt expressed concern that this hospitalization won't be covered because she was observation status and I was told by Orthopedics and admitting that I would be an inpatient. This LUMBER RACKER reviewed MCR Part B benefits, according to form provided to patient, that indicated MCR pays for outpt services at 80% of the billed amount, the 20% owed would then be billed to patient's secondary insurance, [employer]. Sabra, Continuous Mining Machine Operator, confirmed and reiterated this information. Pt admitted she pays nothing for outpt services because pays for everything... And yet continued to exhibit signs of severe anxiety and short term memory loss by asking multiple times, the same question, will MCR cover this hospitalization if I'm an observation status? This LUMBER RACKER had to leave pt's room after 30+ min were spent reviewing information that pt was having a difficult time retaining. Suggested to GUANAKO Cowan that this LUMBER RACKER return to review this information w/ friend Fernando when he arrives. Later heard from RN and YUMI Smith that friend Fernando had arrived and both he and pt were upset about pt's status, pt stated she was not ready to DC home, which was a change from her confidence in the AM. This LUMBER RACKER requested that YUMI Smith come find this LUMBER RACKER if needed for support in coordinating pt's DC if she was medically cleared. Upon review this AM, DC order was cancelled yesterday. P: DC today, home w/friends and family via pov, HH can be arranged if pt agreeable REY Gutierrez
--- NOTE | 2019-03-27 11:56 | PM.PNPO.1 ---
Subjective Subjective Date Patient Seen: 03/26/19 Time Patient Seen: 11:27 Interval history: Patient complains of pain in her lower back. States pain is improving. Voiding without difficulty or assistance. Mobilized w PT, 1 assist, recommends possible discharge home. She is anxious about her outpatient status. Denies fever, chills, chest pain, shortness of breath. Exam Vital Signs (past 8 hours): - 03/27/19 08:15 Temperature 99.0 F Pulse Rate 86 Respiratory Rate 16 Blood Pressure 115/65 Pulse Oximetry 95 Oxygen Delivery Method Room Air Oxygen Flow Rate 0 Narrative Exam Narrative: 84 yo F laying comfortably in bed, in no apparent distress. A&Ox3. Dressing CDI, SCDs in place. Sensory function grossly intact to light touch in LE BL. Able to actively dorsiflex/plantar flex LE BL. Dorsalis pedis 2+ BL. Calves warm, soft, compressible, non tender to palpation. Assessment & Plan Post-op Postoperative Procedures: Procedures Operation Date: 03/24/19 13:15 Actual Procedures Side Surgeon p L4-5 TLIF Andrea Ng MD Postoperative plan narrative: Discharge home today pending PT clearance. Continue current pain management Continue SCDs for DVT prophylaxis Continue mobilizing with PT Time Spent With Patient Time with patient: less than 15 minutes
--- NOTE | 2019-03-27 12:30 | OT.IP.TRT ---
Current Diagnoses Spondylolisthesis, lumbar region (03/24/19) Spinal stenosis, lumbar region with neurogenic claudication (03/24/19) Surgery Performed Operation Date: 03/24/19 13:15 Actual Procedures p L4-5 TLIF - Andrea Ng MD Occupational Therapy Treatment Note M2 OT-IP Current Condition Start: 03/25/19 10:30 Freq: Status: Active Protocol: Document 03/25/19 11:59 PJM (Rec: 03/25/19 17:11 PJM [id number]) Occupational Therapy Current Condition Current Condition Evaluation Date 03/25/19 Treatment Diagnosis decreased self care, mobility s/p L4-5 PLIF Diagnosis Onset Date 03/24/19 Post Operative Precautions Lumbar Precautions Log Roll M3 OT- IP Subjective and Pain Start: 03/25/19 10:30 Freq: Status: Active Protocol: Document 03/27/19 12:35 CCC (Rec: 03/27/19 12:51 [facility] [id number]) OT- Subjective Occupational Therapy Visit Type Type Treatment Note Visit Start Time 10:58 Visit Stop Time 12:30 Total Visit Minutes 92 Occupational Therapy Visit Comments Patient Comments Pt wanting to shower, pt still upset over insurance concerns . Case management aware and has been talking to the pt. Patient/Caregiver Goals To be able to go home. OT Pain Assessment Pain When Pain Assessed At Rest Pain Present Pain Present Pain Reported Location Back Intensity 7 Scale Used Numeric (1 - 10) M4 OT- IP ADL's Start: 03/25/19 10:30 Freq: Status: Active Protocol: Document 03/27/19 12:35 CCC (Rec: 03/27/19 12:51 [facility] [email or web address]) OT [id number] General Evaluation Self-Feeding Ability Independent OT ADL-Grooming Comments OT Grooming Comments Not performed. OT ADL-Dressing General Eval Lower Body Dressing Ability Standby Assistance Areas Needing Assistance Underpants/Brief,Pants/Shorts Assistive Devices Dressing Assistive Devices Long Handled Shoe Horn,Occupational Therapy Instructor ,Sock Aid Comments OT Dressing Comments Today much improved with LB dressing needs with use of normalizer to pavel brief and pants. Pt needing reassurance able to bend at her hips but not at her back for ADl needs. OT ADL-Toileting General Evaluation Toileting Ability Standby Assistance Areas Needing Assistance Manage Clothing,Perform Perineal Hygiene Comments OT Toileting Comments Today, pt able to stand from the toilet with SBA. Pt would benefit from a raised toilet seat , toilet aid, grab bar in the shower, and tub bench. OT ADL-Bathing Bathing Type Bathing Type Shower General Evaluation Bathing Ability Minimal Assistance Areas Needing Assistance Wash/Dry Back Comments OT Bathing Comments Pt able to do most of her shower and just needing assist to wash/dry her back and toes . Pt states to have a caregiver there to assist with showering needs. M5 OT- IP IADL's Start: 03/25/19 10:30 Freq: Status: Active Protocol: Document 03/25/19 11:59 PJM (Rec: 03/25/19 17:11 PJM [id number]) OT-Instrumental Activities of Daily Living Deficits IADL Deficits Identified Deficits Home Safety Awareness Awareness of Need for Assistance at Home Good Awareness Ability to Problem Solve Emergency Able to Problem Solve Situations Medication Management Medication Management No Deficits Identified Money Management Money Management No Deficits Identified Meal Preparation Meal Preparation Caregiver Provides Assist Meal Preparation Comments neighbors and friends to assist with some meal prep and grocery shopping Mud Mill Tender Mud Mill Tender Caregiver Provides Assist Mud Mill Tender Comments friends to assist PRN Driving Driving Caregiver Provides Assist Driving Comments friends to assist until pt able M6 OT- IP Functional Cognition Start: 03/25/19 10:30 Freq: Status: Active Protocol: Document 03/27/19 12:35 CCC (Rec: 03/27/19 12:51 CCC [email or web address]) Cognitive Factors Limiting Selfcare Function Cognitive Ability Level of Alertness Alert Patient Orientation Name,Age,Birthday,Month,Date, Year,Day of Week,Place, Situation Attention Span Ability Capable of Focused Attention, Unable to Sustain Attention Ability to Follow Commands Able to Follow One Step Commands Memory Description Short Term Impaired Safety Awareness Underestimates Need for Assistance Problem Solving Ability Needs Assist to Identify Solutions Cognitive Comments Cognitive Assessment Comments Pt highly distracted by concerns about her insurance coverage for hospital stay. Explained to pt regarding of hospital payments it is critical that she focuses on her back precautions, safety awareness and Adl needs. Pt tehen able to focus better on the task of showering at hand. Pt mainly just needing cues for reassurance that she was following her back precautions appropriately. M7 OT- IP Mobility and Balance Start: 03/25/19 10:30 Freq: Status: Active Protocol: Document 03/27/19 12:35 CCC (Rec: 03/27/19 12:51 [facility] [email or web address]) OT-Transfer Assessment Sit to and From Stand Sit to and from Stand Standby Assistance,Contact Guard Assistance Transfers Transfer Ability Standby Assistance,Contact Guard Assistance Technique Transfer Destination Chair,Shower Stall,Toilet Devices Transfer Assistive Devices Gait Belt,Front Wheeled Walker Comments Mobility Comments CGA today from uneven surfaces and when stepping over the threshold of the shower. OT- Balance Assessment Sitting Balance and Reactions Static Sitting Balance Ability Normal Dynamic Sitting Balance Ability Good Standing Balance and Reactions Static Standing Balance Ability Good Dynamic Standing Balance Ability Fair M8 OT- IP Objective Assessments Start: 03/25/19 10:30 Freq: Status: Active Protocol: Document 03/25/19 11:59 PJM (Rec: 03/25/19 17:11 PJM [id number]) OT Gross Range of Motion Upper Extremity Range of Motion Assessment Within Functional Limits ROM Impairments Pt has significant joint stiffness in B hands especially in AM and currently seeing billet cutter for possible RA dx. OT Strength Upper Extremity Strength Assessment Within Functional Limits Hand Newscast Director Strength Hand Dominance Right OT- Coordination Assessment Comments Coordination Comments BUE WFL for ADLS OT-Muscle Tone Assessment Muscle Tone WNL Yes OT Sensation Assessment Comments Summary Comments WNL BUE per pt Edema Edema Absent M9 OT- IP Assessment and Plan Start: 03/25/19 10:30 Freq: Status: Active Protocol: Document 03/27/19 12:35 [facility] (Rec: 03/27/19 12:51 [facility] [email or web address]) OT Summary Assessment and Plan Potential Rehabilitation Potential Good Analytic Complexity at Evaluation Low Summary OT Impairments Pain,Functional Cognition, Functional Mobility,Grooming, Dressing,Toileting,Bathing, Toilet Transfers,Shower Transfers,Activity Tolerance Progress Towards Goals Progressing Toward Goals Assessment Summary Pt looking to go home with help desk coordinator , supportive neighbor and friends today. Pt able to focus batter on Adl needs at this time. Goals Grooming Goal Independent Dressing Goal Independent,Long Handled Shoe Horn,Occupational Therapy Instructor,Sock Aid Toileting Goal Independent Bathing Goal Standby Assistance Toilet Transfer Goal Independent,ADA High Toilet Shower Transfer Goal Standby Assistance Patient/Caregiver Education Goal Demonstrate Post-Op Precautions,Demonstrate Energy Conservation and Pacing, Caregiver Independent Assisting Patient Frequency of Treatment Frequency Of Treatment Once a Day Treatment Plan OT Treatment Plan ADL Training,Functional Mobility,Patient/Family Education,Discharge Planning Discharge Recommendations OT Discharge Recommendations Home with Assistance Other Discharge Recommendations OT/PT Home Equipment Needs BSC, tub bench, toilet aid
--- NOTE | 2019-03-27 13:25 | PT.IPTN ---
Current Diagnoses Spondylolisthesis, lumbar region (03/24/19) Spinal stenosis, lumbar region with neurogenic claudication (03/24/19) Surgery Performed Operation Date: 03/24/19 13:15 Actual Procedures p L4-5 TLIF - Andrea Ng MD Physical Therapy Treatment Note M2 PT-IP Current Condition Start: 03/25/19 11:11 Freq: NEEDED Status: Active Protocol: Document 03/25/19 11:11 DLM (Rec: 03/25/19 11:30 DLM [email or web address]) Physical Therapy Current Condition Current Condition Evaluation Date 03/25/19 Treatment Diagnosis L4-5 fusion, impaired gait and mobility Onset Date 03/24/19 Precautions Lumbar Precautions Log Roll,No Twisting,Limit Bending,Lifting Restriction of 10 lbs,Gait Belt above Incisional Area Other Precautions has significant joint stiffness throughout with ankles/knees being the worst today after prolonged time in bed M3 PT-IP Subjective Start: 03/25/19 11:11 Freq: NEEDED Status: Active Protocol: Document 03/27/19 12:58 KS (Rec: 03/27/19 14:07 KS [id number]) Subjective Physical Therapy Visit Type Type Treatment Note Visit Start Time 12:58 Visit Stop Time 13:25 Total Visit Minutes 27 Number of JAZZ SINGER Visits 2 Physical Therapy Visit Comments Patient Comments Pt is anxious, but willing to participate in therapy and Fernando was present for caregiver training. M4 PT-IP Mobility and Gait Start: 03/25/19 11:11 Freq: NEEDED Status: Active Protocol: Document 03/27/19 12:58 KS (Rec: 03/27/19 14:07 KS [id number]) PT-Bed Mobility Assessment Scooting Scooting to Edge of Bed Standby Assistance PT-Transfer Assessment Sit to and From Stand Sit to and from Stand Minimal Assistance,1 Person Assistance,Use of Upper Extremities Equipment Transfer Assistive Device Gait Belt,Front Wheeled Walker Transfers Transfer Destination Chair,Wheelchair Transfer Technique Pt ambulated w/ FWW. Transfer Ability Level of Assist Contact Guard Assistance, Minimal Assistance,1 Person Assistance,Use of Upper Extremities Comments Mobility Comments Pt was in chair upon arrival from therapy. JAZZ SINGER explained that Fernando would be providing assistance for patient so that caregiver training can be completed. Fernando applied gait belt and provided assistance for sit<>stand from chair and provided cues for scooting, pushing up w/ both arms from chair and no bending or twisting. Pt and Fernando then ambulated CGA to w/c where pt sat CGA w/ cues to reach back and slowly lower provided by Fernnado. Fernando then brought pt to stairs in w/c. JAZZ SINGER educated Fernando how to provide assistance and cues on stairs. Pt then stood from w/c Min A and ambulated to stairs, completed stair training, and ambulated full distance back to room and sat in chair w/ FWW and CGA by Fernando. Pt left in room w / briefcase sewer present. Gait Assessment Gait Gait Assistance Required: Contact Guard Assist,1 Person Assist Distance (Feet) 200 Able to Maintain Weight Bearing Status Yes During Gait Assistive Devices Assistive Device Gait Belt,Front Wheeled Walker Orthotic/Prosthetic Devices or Brace: No Gait Deviations General Gait Pattern Antalgic,Decreased Stride Length,Decreased Feet Clearance,Flexed Trunk Factors Limiting Gait Function Factors Limiting Gait Function Decreased Activity Tolerance, Pain,Poor Balance Comments Gait Comments Pt ambulated ~200 ft w/ FWW and CGA provided by Fernando who will be assisting her home. Fernando was able to safely provided assistance and cues needed for FWW management. Stair Climbing Assessment Evaluation Level of Assist On Stairs Contact Guard Assistance, Minimal Assistance,1 Person Assistance Devices Stair Climbing Assistive Devices Right Railing Technique/Endurance Stair Climbing Direction Ascend and Descend Stair Climbing Technique Step to Step Number of Steps Climbed 3 Stair Climbing Set # Repetitions (reps) 1 Comments Stair Climbing Comments JAZZ SINGER educated Fernando how to provide safe assist and cues before stair training. Pt ascended/descended 3 steps w/ R handrail and CGA. Fernando provided cues to pt for leg sequencing. On Descent, Fernando safely provided Min A/handhold assist for pts RUE and pt had LUE on handrail. PT and Fernando both state they feel comfortable completing stairs at home. PT-Balance Assessment Sitting Balance and Reactions Static Sitting Balance Ability Good Dynamic Sitting Balance Ability Good Standing Balance and Reactions Static Standing Balance Ability Fair Dynamic Standing Balance Ability Fair Device Used FWW M5 PT-IP Objective Assessments Start: 03/25/19 11:11 Freq: NEEDED Status: Active Protocol: Document 03/25/19 11:11 DLM (Rec: 03/25/19 11:30 DLM [email or web address]) Orientation Orientation/Cognition Level of Alertness Alert Orientation Name,Age,Birthday,Month,Date, Year,Day of Week,Place, Situation Language Function Ability No Deficits Noted Safety Awareness Understands Safety Issues Memory Description No Deficits Noted Comments refluxed up small amounts of food this visit Gross Range of Motion Upper Extremity ROM Assessment Left Impaired Impairments shoulder flexion 90 degrees with end range pain Lower Extremity ROM Assessment Bilaterally Impaired Impairments bilateral ankle/calf tightness , she has difficulty achieving neutral DF bilaterally Strength Upper Extremity Strength Assessment Left Impaired Shoulder pain with use in elevated position Lower Extremity Strength Assessment Within Functional Limits Coordination Assessment Gross Coordination Gross Coordination WNL Sensation Assessment Sensation Gross Sensation WNL Muscle Tone Muscle Tone WNL Yes M6 PT-IP Treatment Start: 03/25/19 11:11 Freq: NEEDED Status: Active Protocol: Document 03/27/19 12:58 KS (Rec: 03/27/19 14:07 KS [id number]) Physical Therapy Treatment Education Education Provided Precautions,Safety Other Treatments Other Treatment Performed DME FWW provided M7 PT-IP Assessment and Plan Start: 03/25/19 11:11 Freq: NEEDED Status: Active Protocol: Document 03/27/19 12:58 KS (Rec: 03/27/19 14:07 KS [id number]) PT Summary Assessment and Plan Potential Rehabilitation Potential Good Summary Impairments Pain,ROM,Strength,Balance,Bed Mobility,Transfers,Gait, Activity Tolerance Progress Towards Goals Slow Progress due to Activity Tolerance Assessment Summary Pt was CGA to Min A for mobility, CGA for ambulation, and CGA to Min A for stair training. Fernando was able to safely provide assist and cues to pt for scooting, sit<> stand, ambulation, stair training, and stand<>sit back in chair. Pt ascended/ descended 3 steps and ambulated ~200 ft w/ Fernando. Pt and Fernando state that they both feel safe to complete ambulation and stairs at home. Goals Bed Mobility Goal Independent Transfer Goal Independent,Front Wheeled Walker Gait Goal Independent,Front Wheel Walker Gait Distance 150 feet Other Goals Up and down 2 steps with rails and SBA. Days to Meet Goals 2 Frequency of Treatment Frequency Of Treatment Twice a Day Treatment Plan Physical Therapy Treatment Plan Bed Mobility Training,Transfer Training,Gait Training, Therapeutic Exercise,Balance Retraining,Post Op Education, Discharge Planning Recommendations To Nursing Amount of Assist Needed 1 Person Assist Discharge Recommendations PT Discharge Recommendations Home with Assistance Other Discharge Recommendations friends/neighbors plan to assist her as needed Transportation Needs at Discharge Private Vehicle
--- NOTE | 2019-03-27 13:31 | PM.PNPO.1 ---
Subjective Subjective Date Patient Seen: 03/27/19 Time Patient Seen: 13:32 Interval history: POD # s/p Exam Vital Signs (past 8 hours): - 03/27/19 08:15 Temperature 99.0 F Pulse Rate 86 Respiratory Rate 16 Blood Pressure 115/65 Pulse Oximetry 95 Oxygen Delivery Method Room Air Oxygen Flow Rate 0 Assessment & Plan Post-op Postoperative Procedures: Procedures Operation Date: 03/24/19 13:15 Actual Procedures Side Surgeon p L4-5 TLIF Andrea Ng MD
--- NOTE | 2019-03-27 14:00 | P.DS_ITS ---
History of Present Illness History of Present Illness Date Patient Seen: 03/27/19 Time Patient Seen: 14:00 Chief complaint: Translaminar Interbody Fusion/Laminotomy Narrative: Patient has been having chronic back pain and worsening lumbar radiculopathy. Patient failed multiple conservative management with worsening pain weakness and numbness in her lower extremity. Patient has been having difficulty performing activity of daily living. After discussing risks benefits of treatment options, patient elected proceed with surgery. Discharge Providers Provider Date of admission: 03/24/19 11:01 Discharge Date: 03/27/19 Consults: 03/24/19 06:00 Consult to Anesthesiology Routine Comment: Consulting Provider: Anesthesiologist Reason for consultation: Regional block for post operative pain control 03/24/19 18:24 Consult to Occupational Therapy Evaluate & Treat Comment: Physician Instructions: Evaluate and treat Consult to Physical Therapy Evaluate & Treat Comment: Physician Instructions: Evaluate and Treat 03/24/19 22:11 Consult to Dietitian, Adult Routine Comment: Reason For Exam: Low margie score. 03/25/19 12:10 Consult to Speech Therapy Evaluate & Treat Comment: HX difficult swallow, crush pills, moist gurgle Physician Instructions: Evaluate and treat 03/26/19 12:46 Consult to Physical Therapy Evaluate & Treat Comment: FWW for home Physician Instructions: Evaluate and Treat Discharge provider: Mercedes Geller PA-C Summary Hospital Course Discharge Diagnosis: s/p TLIF Thyroid disease Herpes zoster Hospital Course: Gifty was admitted for TLIF with Dr. Ng. Patient mobilized with physical therapy throughout her stay. She has friends at home that plan to check in on her. She will go home with home health services as she will need help with bathing, and ADLs. Taking oxycodone for pain control. She has taken [place] in the past in recommending she wean down to [place]. She was eating and voiding prior to discharge. New dressing applied before discharge. Status at Discharge Functional status at discharge: uses cane/walker Exam Vital Signs (past 8 hours): - 03/27/19 08:15 Temperature 99.0 F Pulse Rate 86 Respiratory Rate 16 Blood Pressure 115/65 Pulse Oximetry 95 Oxygen Delivery Method Room Air Oxygen Flow Rate 0 Narrative Exam Narrative: Patient is sitting in bedside chair no acute distress. Calves are soft, compressible, nontender bilaterally. New dressing at [facility]. Sensation intact light touch throughout bilateral extremities. She is able to actively dorsiflex plantar flex. Pain is under control this morning. Discharge Plan Discharge Plan Patient Disposition: Home Health Service Discharge orders & Medications Prescriptions: New oxycodone 5 mg tablet 5 mg PO Q4-6H PRN (Reason: pain (scale score 7-10)) Qty: 60 RF: 0 acetaminophen 325 mg Tablet 650 mg PO Q6HR PRN (Reason: Pain, Mild (1-3)) Qty: 20 RF: 0 Continued pantoprazole 20 mg Tablet,Delayed Release (Dr/Ec) 20 mg PO BID RF: 0 zolpidem 5 mg Tablet 5 mg PO BEDTIME PRN (Reason: sleep, anxiety) RF: 0 furosemide 20 mg Tablet 20 mg PO DAILY RF: 0 thyroid (pork) [[place] Thyroid] 30 mg Tablet 30 mg PO DAILY RF: 0 gabapentin 300 mg Capsule 600 mg PO BEDTIME PRN (Reason: Pain in hands) RF: 0 Discontinued hydrocodone-acetaminophen 5-325 mg Tablet 1 tab PO Q4-6H PRN (Reason: Pain) RF: 0 Follow up/Referrals: Andrea Ng MD [Physician] - Diet/Activity/Treatments Diet: Regular Activity: no excessive bending, lifting, twisting Cold/Heat Therapy: continue cold therapy as needed Skin/Wound/Dressing Care Report to your healthcare provider any signs of infection, such as:: chills, fev er, increased pain, unusual drainage and unusual redness Dressing: keep dressing dry. contact office for dressing changes. Visit Report/Discharge Packet Instructions: DI for Constipation, How to Prevent Falls, DI for Postoperative Pain, DI for Prescription Opioid Use, Oxycodone, DI for Transforaminal Lumbar Interbody Fusion Stand Alone Forms: Surgery Discharge Visit Report Forms: Patient Portal/API, Stroke Signs & Symptoms
--- NOTE | 2019-03-27 14:09 | PC.NURSE ---
PAtient received wallet from [employer], had drivers license, ID and medical card.
--- NOTE | 2019-03-27 15:19 | PC.NURSE ---
Discharge: Pt readied for d/c home. Had many concerns while she is in this process. Doesn't feel people are listening to her, felt she should not have to sign papers about medicare rights while here as she is under the influence of medications. Concerned about her status while here (in patient vs out patient) SS made aware of pt's multiple concerns and they came and spoke with her. Pt also asking for a bsc minutes prior to d/c. A list was obtained from PT/OT as to where she can purchase supplies including a bsc and given. Pt reports po pain meds effective and her friend Fernando has the rx already. Vds w/out diff. PT worked w/patient one final time with Fernando at the stairs. Pt given time to verb her many concerns and feelings. She is concerned depending on her status while here and medicare requirements what her bill will be, she wanted to speak with someone in billing and they are closed today. She knows she can call them on friday. Pt reports she will be filing a complaint and Hilaria Dyson is the one she can contact on friday. Reviewed d/c packet and given summary. Fernando also had concerns about pt's status and this information should have been clear from the start. When pt checked in they said she was told she would be inpatient status. It is unknown to this promotion writer what occurred with admitting process. Communication could have been better however admitting doesn't decide pt status, the md does. Did encourage pt to bring her concerns forward so they can be addressed formally on friday. rest of d/c information reviewed. Questions answered. Pt d/c home via auto w/friend fernando.
--- NOTE | 2019-03-27 15:29 | CM.DPNOTE ---
DC Note: DC order in place and pt states she is ready to go, agreeable to HH. Friend Fernando at bedside, transporting pt home to [facility] Reviewed MCR B benefits a few more times. Placed call to [facility], spoke to Kathleen who thought RN f/u could be scheduled Friday. Requested RN/PT/OT/HOLISTIC HEALTH PRACTITIONER/SENIOR ELECTRICAL PROJECT MANAGER, faxed signed F2F, HH order, H+P/DC Summary and therapy notes to [facility]. Updated pt and friend Fernando. P: DC home w/friend via pov w/ [facility] to follow REY Gutierrez
== END 2019-03-27 15:20 | disposition home health service (06) ==
LOC: AC 03-27 14:08 → OR 03-28 08:58 → AC 03-28 09:03
PROVIDERS: Admitting Provider Orthopaedic Surgery Orthopaedic Surgery of the Spine; Referring Provider Orthopaedic Surgery Orthopaedic Surgery of the Spine; Visit Provider Orthopaedic Surgery Orthopaedic Surgery of the Spine
PROC: (CPT 22633; principal; 2019-03-24 13:15)
DX: M48.062 Spinal stenosis, lumbar region with neurogenic claudication (principal); M43.16 Spondylolisthesis, lumbar region; M54.16 Radiculopathy, lumbar region
CPT/HCPCS: 22633; 22840; 22853; 20939; 63047; 72100; 76000; 97116; 97162; 97165; 97530; 97535; C1776; G0378; C9290; J0330; J0690; J1100; J1170; J2405; J2704; J3010; J3410

== ENCOUNTER 2019-11-19 15:16 | Emergency (ER) | payer MEDICARE, OTHER, SELFPAY ==
[2019-03-24 18:24] VITALS: BMI 23.3
[2019-11-19] VITALS (21 sets, daily range): BP systolic 106–154; BP diastolic 64–88; PULSE 78–109; RESP 18–28; TEMP 37.1; O2SAT 91–100; BMI 16.0
[2019-11-19 15:47] LABS: Add Manual Diff / Slide Review NO; Basophils Absolute Auto 0 /uL (0-100); Basophils Percent Auto 0.3 % (0-2); Eosinophils Absolute Auto 0 /uL (0-450); Eosinophils Percent Auto 0.2 % (2-4); Hemoglobin 14.7 g/dL (12.0-16.0); Lymphocytes Absolute Auto 1500 /uL (1100-4500); Lymphocytes Percent Auto 9.1 % (25-40); Mean Corpuscular HGB Conc 32.7 % (30-36); Mean Corpuscular Hemoglobin 29.1 PG (26-34); Mean Corpuscular Volume 88.8 fL (80-100); Monocytes Absolute Auto 900 /uL (0-900); Monocytes Percent Auto 5.8 % (3-14); Neutrophils Absolute Auto 13400 /uL (1500-7000); Neutrophils Percent Auto 84.6 % (50-75); Platelet Count 430 X10^3/uL (150-400); Red Blood Cell Count 5.07 X10^6/uL (4.0-5.2); Red Cell Distribution Width 15.9 % (11.6-14.8); White Blood Cell Count 15.9 X10^3/uL (4.5-11.0)
[2019-11-19 15:50] LABS: INR 1.1 (0.9-1.3); Prothrombin Time 12.7 SECONDS (10.1-12.7)
[2019-11-19 15:52] LABS: PTT Partial Thromboplastin Tim 34 SECONDS (26.4-36.2)
[2019-11-19 15:54] LABS: Alanine Aminotransferase 24 IU/L (<35); Albumin Globulin Ratio 0.9 (1.0-2.8); Alkaline Phosphatase 93 U/L (38-126); Aspartate Aminotransferase 48 IU/L (14-36); BUN Creatinine Ratio 33.3 (6-22); Bilirubin Total 0.7 mg/dL (0.2-1.3); Blood Urea Nitrogen 14 mg/dL (7-17); Calcium 9.4 mg/dL (8.4-10.2); Carbon Dioxide 30 mmol/L (22-32); Chloride 92 mmol/L (98-107); Estimated Glomerular Filt Rate > 60.0 mL/min (>60); Globulin 4.5 g/dL (1.7-4.1); Glucose 106 mg/dL (80-110); HEMOLYSIS 38 (0-50); Lipase 34 U/L (23-300); Potassium 4.2 mmol/L (3.4-5.1); Sodium 129 mmol/L (137-145); Total Protein 8.5 g/dL (6.3-8.2)
[2019-11-19 16:34] LABS: COVID19 -Nasal RAPID Negative (Negative)
--- NOTE | 2019-11-19 16:42 | ED_ITS ---
HPI - General Adult <Karel Quach DO - Last Filed: 11/22/19 19:00> General Chief complaint: Weakness Stated complaint: LOSS OF WEIGHT NOT ABLE TO SWALLOW EXHAUSTED Time Seen by Provider: 11/19/19 16:03 Source: patient and family Mode of arrival: Wheelchair Limitations: no limitations History of Present Illness HPI narrative: Patient is an 84-year-old female here requesting admission to the hospital secondary to inability to care for herself at home. Patient's medical history is complicated by issues with dysphagia. Earlier this year patient was seen and evaluated by with ear nose and throat at [facility] for a diagnosis of a Zenker diverticulum. This was subsequently repaired by an open incision. Patient states that since that time she has continued to have dys phagia. States that it is to the point to where she can only take very small amounts of Ensure meal supplements and even then it is very difficult for her to swallow. States it is not painful for her to swallow. Since July she has lost greater than 75 lb. She reports that she has continued to lose weight and has lost greater than 10 lb over the past several weeks. She contacted her ENT doctor who wanted her to get a barium swallow here in the local area and was told by his nursing staff that if her symptoms were to worsen that she should return to [facility] to be evaluated and potentially admitted for further evaluation treatment. She has yet to schedule the outpatient barium swallow. She does have a follow-up visit already scheduled next week with her ENT provider. Patient states that she felt like she could not make it to that follow-up visit secondary to weakness at home. She stated that she felt like she could not make it to [facility] so she came to this emergency department. Related Data Home Medications Medication Instructions Recorded Confirmed furosemide 20 mg PO DAILY 03/17/19 03/24/19 gabapentin 600 mg PO BEDTIME PRN 03/17/19 03/17/19 pantoprazole 20 mg PO BID 03/17/19 03/24/19 thyroid (pork) [Mims Thyroid] 30 mg PO DAILY 03/17/19 03/24/19 zolpidem 5 mg PO BEDTIME PRN 03/17/19 03/24/19 Previous Rx's Medication Instructions Recorded oxycodone 5 mg PO Q4-6H PRN #60 tab 03/26/19 acetaminophen 650 mg PO Q6HR PRN #20 tab 03/27/19 Allergies Allergy/AdvReac Type Severity Reaction Status Date / Time methotrexate Allergy Severe Rash Verified 11/19/19 15:33 aspirin AdvReac Severe GI Bleed Verified 11/19/19 15:33 meperidine [From Demerol] AdvReac Severe Personality Verified 11/19/19 15:33 changes NSAIDS (Non-Steroidal AdvReac Severe GI Bleed Verified 11/19/19 15:33 Anti-Inflamma Review of Systems <Karel Quach DO - Last Filed: 11/22/19 19:00> Constitutional Constitutional: Reports fatigue, Denies fever(s), Reports malaise, Reports weakness and Reports weight loss Eyes Eyes: Denies change in vision ENT Ears, Nose, Mouth, and Throat: Reports dysphagia, Denies vertigo, Denies dizziness, Denies mouth lesions and Denies sore throat Cardiovascular Cardiovascular: Denies chest pain and Denies dyspnea Respiratory Respiratory: Denies dyspnea Gastrointestinal Gastrointestinal: Denies abdominal pain, Denies change in bowel habits, Reports dysphagia, Denies nausea and Denies vomiting Comments: Dysphasia Genitourinary Genitourinary: Denies dysuria Genitourinary: Denies dysuria Musculoskeletal Musculoskeletal: Reports muscle weakness Integumentary/Breasts Skin/Breast: Denies rash Neurologic Neurologic: Denies behavioral changes, Denies vertigo, Denies dizziness and Reports weakness Psychiatric Psychiatric: Denies behavioral changes Endocrine Endocrine: Reports fatigue Hematologic/Lymphatic Hematologic/Lymphatic: Denies easy bleeding and Denies easy bruising Allergic/Immunologic Allergic/Immunologic: Denies urticaria Patient History <Karel Quach DO - Last Filed: 11/22/19 19:00> Medical History Acid reflux (Acute) Anxiety (Acute) Arthritis (Acute) Broken teeth (Acute 03/11/19) Difficulty swallowing solids (Acute) HTN (hypertension) (Acute) Hypothyroid (Acute) Numbness and tingling in both hands (Acute) Shoulder pain (Acute) Surgical History History of surgery (Acute) Hx of hemorrhoidectomy (Acute) Hx of tonsillectomy (Acute) Social History household members: none Smoking Status: Former smoker alcohol intake: current Smoking Status: Former smoker alcohol intake frequency: holidays/special occasions only Substance Use Type: does not use Exam <DO Ann Zafar Last Filed: 11/22/19 19:00> Initial Vital Signs Initial Vital Signs: Vital Signs Temperature 98.8 F 11/19/19 15:33 Pulse Rate 96 H 11/19/19 15:33 Respiratory Rate 26 H 11/19/19 15:33 Blood Pressure 147/80 H 11/19/19 15:33 Pulse Oximetry 97 11/19/19 15:33 Const General: cooperative and frail appearing Nutritional Appearance: cachectic, malnourished and thin Limitations: mental status not altered HENMT Head: normal to inspection and normocephalic Eyes General: appearance normal, both eyes and all related structures Resp Effort & Inspection: normal respiratory effort Auscultation: clear to auscultation bilaterally Cardio Rate: tachycardic Rhythm: regular rhythm GI Inspection: non-distended Palpation: soft Skin Lesions: no lesions Rashes: no rashes Neuro General: patient alert, patient awake and patient oriented x3 Speech: speech normal Extrem General: capillary refill normal and No edema Psych Appearance: other (Thin) <Macarena Calvillo MD - Last Filed: 11/20/19 01:05> Initial Vital Signs Initial Vital Signs: Vital Signs Temperature 98.8 F 11/19/19 15:33 Pulse Rate 96 H 11/19/19 15:33 Respiratory Rate 26 H 11/19/19 15:33 Blood Pressure 147/80 H 11/19/19 15:33 Pulse Oximetry 97 11/19/19 15:33 Scores <DO Ann Zafar Last Filed: 11/22/19 19:00> GCS [place] coma scale eye opening: Spontaneous [place] coma scale verbal response: Orientated [place] coma scale motor response: Obey commands Anil coma scale total score: 15 Course <DO Ann Zafar Last Filed: 11/22/19 19:00> Orders Ordered: Discontinued Medications Sodium Chloride (Normal Saline 0.9%) 1,000 mls @ 125 mls/hr IV CONT ZOEY Last Infusion: 11/20/19 00:55 Dose: 0 mls/hr Documented by: Admin: 11/19/19 16:57 Dose: 125 mls/hr Documented by: PURA Sodium Chloride (Normal Saline 0.9%) 1,000 mls @ 1,000 mls/hr IV BOLUS ONE Stop: 11/19/19 20:32 Last Infusion: 11/19/19 23:00 Dose: 0 mls/hr Documented by: Admin: 11/19/19 20:09 Dose: 1,000 mls/hr Documented by: PURA Ketorolac Tromethamine (Toradol) 15 mg IV NOW ONE Stop: 11/19/19 22:03 Last Admin: 11/19/19 22:06 Dose: 15 mg Documented by: PURA Vital Signs Vital signs: Vital Signs - 8 hr 11/19/19 17:30 11/19/19 18:00 11/19/19 18:30 Pulse Rate 102 H 89 108 H Respiratory Rate 27 H 27 H Blood Pressure 142/69 H 137/83 106/64 Pulse Oximetry 98 98 11/19/19 19:00 11/19/19 19:30 11/19/19 20:00 Pulse Rate Respiratory Rate 24 23 26 H Blood Pressure 144/88 H Pulse Oximetry 99 95 91 11/19/19 20:01 11/19/19 20:19 11/19/19 20:30 Pulse Rate 91 H 109 H 90 Respiratory Rate 28 H 18 26 H Blood Pressure 131/88 131/88 143/77 H Pulse Oximetry 100 11/19/19 21:00 11/19/19 21:30 11/19/19 22:00 Pulse Rate 87 81 81 Respiratory Rate 23 24 24 Blood Pressure 137/74 139/70 154/73 H Pulse Oximetry 11/19/19 22:09 11/19/19 22:30 11/19/19 23:00 Pulse Rate 88 83 78 Respiratory Rate 18 24 22 Blood Pressure 154/73 H 130/70 143/75 H Pulse Oximetry 99 11/19/19 23:30 11/19/19 23:31 11/20/19 00:00 Pulse Rate 83 92 H Respiratory Rate 24 21 Blood Pressure 127/74 124/58 L Pulse Oximetry 11/20/19 00:30 Pulse Rate 83 Respiratory Rate 24 Blood Pressure 124/60 Pulse Oximetry <Macarena Calvillo MD - Last Filed: 11/20/19 01:05> Course Course Narrative: Care is accepted from Dr. Quach with anticipated transfer to [facility] for increasing dysphagia to the point that she is unable to manage secretions. She has no respiratory distress or fever at this time. 814pm transfer center returns call request for ENT consultation and medicine admission with floor care bed anticipated is reviewed. 828pm Dr Mccracken, ENT returns call and agrees with admission to hospitalist service. He will consult. Discussed no imaging done and he will review case and suggest imaging recommendations for the excepting hospitalist service. Next spoke with , admitting hospitalist. Care is reviewed. She accepts transfer. 914pm still waiting to hear on bed availability 11pm call from transfer center the bed was available and transport could be range 1am BLS transport available and patient will be transferred to [facility] Orders Ordered: Discontinued Medications Sodium Chloride (Normal Saline 0.9%) 1,000 mls @ 125 mls/hr IV CONT ZOEY Last Infusion: 11/20/19 00:55 Dose: 0 mls/hr Documented by: Admin: 11/19/19 16:57 Dose: 125 mls/hr Documented by: PURA Sodium Chloride (Normal Saline 0.9%) 1,000 mls @ 1,000 mls/hr IV BOLUS ONE Stop: 11/19/19 20:32 Last Infusion: 11/19/19 23:00 Dose: 0 mls/hr Documented by: Admin: 11/19/19 20:09 Dose: 1,000 mls/hr Documented by: PURA Ketorolac Tromethamine (Toradol) 15 mg IV NOW ONE Stop: 11/19/19 22:03 Last Admin: 11/19/19 22:06 Dose: 15 mg Documented by: PURA Vital Signs Vital signs: Vital Signs - 8 hr 11/19/19 17:30 11/19/19 18:00 11/19/19 18:30 Pulse Rate 102 H 89 108 H Respiratory Rate 27 H 27 H Blood Pressure 142/69 H 137/83 106/64 Pulse Oximetry 98 98 11/19/19 19:00 11/19/19 19:30 11/19/19 20:00 Pulse Rate Respiratory Rate 24 23 26 H Blood Pressure 144/88 H Pulse Oximetry 99 95 91 11/19/19 20:01 11/19/19 20:19 11/19/19 20:30 Pulse Rate 91 H 109 H 90 Respiratory Rate 28 H 18 26 H Blood Pressure 131/88 131/88 143/77 H Pulse Oximetry 100 11/19/19 21:00 11/19/19 21:30 11/19/19 22:00 Pulse Rate 87 81 81 Respiratory Rate 23 24 24 Blood Pressure 137/74 139/70 154/73 H Pulse Oximetry 11/19/19 22:09 11/19/19 22:30 11/19/19 23:00 Pulse Rate 88 83 78 Respiratory Rate 18 24 22 Blood Pressure 154/73 H 130/70 143/75 H Pulse Oximetry 99 11/19/19 23:30 11/19/19 23:31 11/20/19 00:00 Pulse Rate 83 92 H Respiratory Rate 24 21 Blood Pressure 127/74 124/58 L Pulse Oximetry 11/20/19 00:30 Pulse Rate 83 Respiratory Rate 24 Blood Pressure 124/60 Pulse Oximetry Medical Decision Making <Karel Quach, - Last Filed: 11/22/19 19:00> Lab Data Lab results reviewed: Yes I reviewed the patient's lab results. Result diagrams: 11/19/19 15:38 11/19/19 15:38 Labs: Lab Results 11/19/19 11/19/19 11/19/19 Range/Units 15:38 15:38 15:38 WBC 15.9 H (4.5-11.0) X10^3/uL RBC 5.07 (4.0-5.2) X10^6/uL Hgb 14.7 (12.0-16.0) g/dL Hct 45.0 (36-46) % MCV 88.8 (80-100) fL MCH 29.1 (26-34) PG MCHC 32.7 (30-36) % RDW 15.9 H (11.6-14.8) % Plt Count 430 H (150-400) X10^3/uL Neut % (Auto) 84.6 H (50-75) % Lymph % (Auto) 9.1 L (25-40) % [place] % (Auto) 5.8 (3-14) % Eos % (Auto) 0.2 L (2-4) % Baso % (Auto) 0.3 (0-2) % Neut # (Auto) 80659 H (2244-8319) /uL Lymph # (Auto) 1500 (2833-8883) /uL [place] # (Auto) 900 (0-900) /uL Eos # (Auto) 0 (0-450) /uL Baso # (Auto) 0 (0-100) /uL PT 12.7 (10.1-12.7) SECONDS INR 1.1 (0.9-1.3) APTT 34 (26.4-36.2) SECONDS Sodium 129 L (137-145) mmol/L Potassium 4.2 (3.4-5.1) mmol/L Chloride 92 L (98-107) mmol/L Carbon Dioxide 30 (22-32) mmol/L BUN 14 (7-17) mg/dL Creatinine 0.42 L (0.52-1.04) mg/dL Estimated GFR > 60.0 (>60) mL/min BUN/Creatinine Ratio 33.3 H (6-22) Glucose 106 (80-110) mg/dL Calcium 9.4 (8.4-10.2) mg/dL Total Bilirubin 0.7 (0.2-1.3) mg/dL AST 48 H (14-36) IU/L ALT 24 (<35) IU/L Alkaline Phosphatase 93 (38-126) U/L Total Protein 8.5 H (6.3-8.2) g/dL Albumin 4.0 (3.5-5.0) g/dL Globulin 4.5 H (1.7-4.1) g/dL Albumin/Globulin Ratio 0.9 L (1.0-2.8) Lipase 34 (23-300) U/L COVID-19 PCR (Negative) 11/19/19 Range/Units 16:09 WBC (4.5-11.0) X10^3/uL RBC (4.0-5.2) X10^6/uL Hgb (12.0-16.0) g/dL Hct (36-46) % MCV (80-100) fL MCH (26-34) PG MCHC (30-36) % RDW (11.6-14.8) % Plt Count (150-400) X10^3/uL Neut % (Auto) (50-75) % Lymph % (Auto) (25-40) % [place] % (Auto) (3-14) % Eos % (Auto) (2-4) % Baso % (Auto) (0-2) % Neut # (Auto) (8617-2356) /uL Lymph # (Auto) (5274-4375) /uL [place] # (Auto) (0-900) /uL Eos # (Auto) (0-450) /uL Baso # (Auto) (0-100) /uL PT (10.1-12.7) SECONDS INR (0.9-1.3) APTT (26.4-36.2) SECONDS Sodium (137-145) mmol/L Potassium (3.4-5.1) mmol/L Chloride (98-107) mmol/L Carbon Dioxide (22-32) mmol/L BUN (7-17) mg/dL Creatinine (0.52-1.04) mg/dL Estimated GFR (>60) mL/min BUN/Creatinine Ratio (6-22) Glucose (80-110) mg/dL Calcium (8.4-10.2) mg/dL Total Bilirubin (0.2-1.3) mg/dL AST (14-36) IU/L ALT (<35) IU/L Alkaline Phosphatase (38-126) U/L Total Protein (6.3-8.2) g/dL Albumin (3.5-5.0) g/dL Globulin (1.7-4.1) g/dL Albumin/Globulin Ratio (1.0-2.8) Lipase (23-300) U/L COVID-19 PCR Negative (Negative) ECG Data Attestation: I personally reviewed and interpreted this ECG as follows: Prior ECG tracings: not available for review Interpretation: Sinus rhythm Ventricular rate 97 Left axis deviation QRS 1-0 milliseconds QTC 449 milliseconds <Macarena Calvillo MD - Last Filed: 11/20/19 01:05> Lab Data Labs: Lab Results 11/19/19 11/19/19 11/19/19 Range/Units 15:38 15:38 15:38 WBC 15.9 H (4.5-11.0) X10^3/uL RBC 5.07 (4.0-5.2) X10^6/uL Hgb 14.7 (12.0-16.0) g/dL Hct 45.0 (36-46) % MCV 88.8 (80-100) fL MCH 29.1 (26-34) PG MCHC 32.7 (30-36) % RDW 15.9 H (11.6-14.8) % Plt Count 430 H (150-400) X10^3/uL Neut % (Auto) 84.6 H (50-75) % Lymph % (Auto) 9.1 L (25-40) % [place] % (Auto) 5.8 (3-14) % Eos % (Auto) 0.2 L (2-4) % Baso % (Auto) 0.3 (0-2) % Neut # (Auto) 07217 H (5181-1811) /uL Lymph # (Auto) 1500 (1333-0065) /uL [place] # (Auto) 900 (0-900) /uL Eos # (Auto) 0 (0-450) /uL Baso # (Auto) 0 (0-100) /uL PT 12.7 (10.1-12.7) SECONDS INR 1.1 (0.9-1.3) APTT 34 (26.4-36.2) SECONDS Sodium 129 L (137-145) mmol/L Potassium 4.2 (3.4-5.1) mmol/L Chloride 92 L (98-107) mmol/L Carbon Dioxide 30 (22-32) mmol/L BUN 14 (7-17) mg/dL Creatinine 0.42 L (0.52-1.04) mg/dL Estimated GFR > 60.0 (>60) mL/min BUN/Creatinine Ratio 33.3 H (6-22) Glucose 106 (80-110) mg/dL Calcium 9.4 (8.4-10.2) mg/dL Total Bilirubin 0.7 (0.2-1.3) mg/dL AST 48 H (14-36) IU/L ALT 24 (<35) IU/L Alkaline Phosphatase 93 (38-126) U/L Total Protein 8.5 H (6.3-8.2) g/dL Albumin 4.0 (3.5-5.0) g/dL Globulin 4.5 H (1.7-4.1) g/dL Albumin/Globulin Ratio 0.9 L (1.0-2.8) Lipase 34 (23-300) U/L COVID-19 PCR (Negative) 11/19/19 Range/Units 16:09 WBC (4.5-11.0) X10^3/uL RBC (4.0-5.2) X10^6/uL Hgb (12.0-16.0) g/dL Hct (36-46) % MCV (80-100) fL MCH (26-34) PG MCHC (30-36) % RDW (11.6-14.8) % Plt Count (150-400) X10^3/uL Neut % (Auto) (50-75) % Lymph % (Auto) (25-40) % [place] % (Auto) (3-14) % Eos % (Auto) (2-4) % Baso % (Auto) (0-2) % Neut # (Auto) (6364-8122) /uL Lymph # (Auto) (6647-4547) /uL [place] # (Auto) (0-900) /uL Eos # (Auto) (0-450) /uL Baso # (Auto) (0-100) /uL PT (10.1-12.7) SECONDS INR (0.9-1.3) APTT (26.4-36.2) SECONDS Sodium (137-145) mmol/L Potassium (3.4-5.1) mmol/L Chloride (98-107) mmol/L Carbon Dioxide (22-32) mmol/L BUN (7-17) mg/dL Creatinine (0.52-1.04) mg/dL Estimated GFR (>60) mL/min BUN/Creatinine Ratio (6-22) Glucose (80-110) mg/dL Calcium (8.4-10.2) mg/dL Total Bilirubin (0.2-1.3) mg/dL AST (14-36) IU/L ALT (<35) IU/L Alkaline Phosphatase (38-126) U/L Total Protein (6.3-8.2) g/dL Albumin (3.5-5.0) g/dL Globulin (1.7-4.1) g/dL Albumin/Globulin Ratio (1.0-2.8) Lipase (23-300) U/L COVID-19 PCR Negative (Negative) Discharge Plan Departure Patient Disposition: [facility] Clinical Impression: Dehydration, Acute hyponatremia, Excessive body weight loss Dysphagia Qualifiers: Dysphagia type: unspecified Qualified Code(s): R13.10 - Dysphagia, unspecified Discharge Date/Time: 11/20/19 01:19 Prescriptions: No Action pantoprazole 20 mg Tablet,Delayed Release (Dr/Ec) 20 mg PO BID RF: 0 zolpidem 5 mg Tablet 5 mg PO BEDTIME PRN (Reason: sleep, anxiety) RF: 0 furosemide 20 mg Tablet 20 mg PO DAILY RF: 0 thyroid (pork) [Mims Thyroid] 30 mg Tablet 30 mg PO DAILY RF: 0 gabapentin 300 mg Capsule 600 mg PO BEDTIME PRN (Reason: Pain in hands) RF: 0 oxycodone 5 mg tablet 5 mg PO Q4-6H PRN (Reason: pain (scale score 7-10)) Qty: 60 RF: 0 acetaminophen 325 mg Tablet 650 mg PO Q6HR PRN (Reason: Pain, Mild (1-3)) Qty: 20 RF: 0
[2019-11-19] MEDS: SODIUM CHLORIDE 0.9% 1,000 ML 125 ML IV (16:57)
[2019-11-19] MEDS: SODIUM CHLORIDE 0.9% 1,000 ML 1000 ML IV (20:09)
[2019-11-19] MEDS: KETOROLAC 60 MG/2 ML VIAL 15 MG IV (22:06)
[2019-11-20] VITALS: BP 124/58; PULSE 92; RESP 21
[2019-11-20 00:30] VITALS: BP 124/60; PULSE 83; RESP 24
== END 2019-11-20 01:19 | disposition short-term general hospital (02) ==
PROVIDERS: Emergency Provider Emergency Medicine
DX: E87.1 Hypo-osmolality and hyponatremia (principal); E86.0 Dehydration; R13.10 Dysphagia, unspecified; R63.4 Abnormal weight loss; R53.1 Weakness
CPT/HCPCS: 36415; 80053; 83690; 85025; 85610; 85730; 87635; 93005; 96365; 96366; 96375; 99284; J1885